=== PATIENT | male | born 1990 ===

== ENCOUNTER 2023-03-24 20:44 | Inpatient (IN) | payer OTHER, SELFPAY ==
--- OUTSIDE RECORDS SUMMARY | 2023-03-24 20:49 | XMS_ITS | Continuity of Care Document ---
Author Name Unknown Organization [facility] Address [address] [place] [address]- Care Team Providers Care Lamp Cleaner Street Light Name Role Phone González Vargas DO Primary Care Physician [place] [facility] [place] 05[place]04/21 [facility] [address] [place] [address]- Encounter Diagnosis Scalp laceration(Final) - 05/04/21 Discharge Disposition: A-D/C Home Attending Physician: Venkata Bryson MD Admitting Physician: Venkata Bryson MD Referring Physician: Not on Staff, Referring MD Allergies, Adverse Reactions, Alerts Substance Reaction Severity Status NKA Active Immunizations Not Given Vaccine Date Status Refusal Reason pneumococcal 23-valent vaccine 07/25/18 Not Given Parent Or Guardian Refuses pneumococcal 23-valent vaccine 04/09/17 Not Given Patient Refuses influenza virus vaccine, inactivated 07/25/18 Not Given Parent Or Guardian Refuses Medications gabapentin 300 mg oral capsule 600 mg, 2, capsule, By Mouth, 3 times a day, # 90 capsule, Refills 0, Maintenance, 02/27/21 12:45:00 EDT, Partial fill upon patient request if the prescription is for a schedule II opioid drug. Start Date: 02/27/21 Status: Ordered Methadone By Mouth, 0 Refills, Maintenance, 03/20/20 20:29:00 EDT, Partial fill upon patient request Start Date: 03/20/20 Status: Ordered Vital Signs Most recent to oldest [Reference Range]: 1 Height 170 cm (05/04/21 8:43 PM) Weight 79 kg (05/04/21 8:43 PM) Oxygen Saturation [94-100 %] 97 % (05/04/21 8:43 PM) Pulse Rate [55-90 bpm] 84 bpm (05/04/21 8:43 PM) Blood Pressure [90-138/55-84 mm Hg] 128/ 85mm Hg (05/04/21 8:43 PM) Respiratory Rate [16-30 br/min] 16 br/mi n (05/04/21 8:43 PM) Temperature [96.8-100.4 DegF] 99.7 DegF (05/04/21 8:43 PM) Mode of Delivery (Oxygen) Room air (05/04/21 8:43 PM) Temperature Route Oral (05/04/21 8:43 PM) Dry Weight 79 kg (05/04/21 8:43 PM)
--- OUTSIDE RECORDS SUMMARY | 2023-03-24 20:49 | XMS_ITS | Continuity of Care Document ---
Author Name Unknown Organization [facility] Address [address] [place] [address]- Care Team Providers Care Gis Geographer Name Role Phone Lilian CHAMBERS Jr, Maico Benz Primary Care Physician ( [phone] [place] [facility] [place](s[place] 07/26/21 - 08/29/[address] [address]- Attending Physician: Mary White MD Admitting Physician: Mary White MD Referring Physician: Mary White MD Allergies, Adverse Reactions, Alerts Substance Reaction Severity Status NKA Active Immunizations Not Given Vaccine Date Status Refusal Reason pneumococcal 23-valent vaccine 07/25/18 Not Given Parent Or Guardian Refuses pneumococcal 23-valent vaccine 04/09/17 Not Given Patient Refuses influenza virus vaccine, inactivated 07/25/18 Not Given Parent Or Guardian Refuses Medications clonazePAM 0.5 mg oral tablet 1 tablet = 0.5 mg, By Mouth, Daily, PRN Anxiety, 0 Refills, Maintenance, 08/23/21 10:18:00 EST, Tablet, Partial fill upon patient request if the prescription is for a schedule II opioid drug. Start Date: 08/23/21 Status: Ordered gabapentin 300 mg oral capsule 600 mg, 2, capsule, By Mouth, 3 times a day, # 42 capsule, Refills 0, Tot. Refills 0, Maintenance, 08/23/21 10:20:00 EST, Route to Pharmacy Electronically, [facility]/pharmacy #[id number], Partial fill upon patient request if the prescription is for a schedule II... Start Date: 08/23/21 Stop Date: 08/30/21 Status: Ordered Methadone = 195 mg, By Mouth, Daily, 0 Refills, Maintenance, 03/20/20 20:29:00 EDT, Partial fill upon patientrequest Start Date: 03/20/20 Status: Ordered mirtazapine 30 mg oral tablet 1 tablet = 30 mg, By Mouth, Daily at bedtime, # 7 tablet, 0 Refills, Maintenance, 08/23/21 10:22:00EST, Tablet, [facility]/pharmacy #[id number], Partial fill upon patient request if the prescription is for a schedule II opioid drug., 169, cm, 08/23/21 8:37:00 EST... Start Date: 08/23/21 Stop Date: 08/30/21 Status: Ordered QUEtiapine 100 mg oral tablet 100 mg, 1, tablet, By Mouth, 2 times a day, # 14 tablet, Refills 0, Tot. Refills 0, Maintenance, 08/23/21 10:21:00 EST, Route to Pharmacy Electronically, [facility]/pharmacy #[id number], Partial fill upon patientrequest if the prescription is for a schedule II op... Start Date: 08/23/21 Stop Date: 08/30/21 Status: Ordered Vyvanse = 50 mg, By Mouth, Daily in AM, 0 Refills, Maintenance, 08/13/21 13:34:00 EST, Partial fill upon patient request if the prescription is for a schedule II opioid drug. Start Date: 08/13/21 Status: Ordered
--- OUTSIDE RECORDS SUMMARY | 2023-03-24 20:49 | XMS_ITS | Continuity of Care Document ---
Author Name Unknown Organization [facility] Address [address] [place] [address]- Care Team Providers Care Senior Billing Consultant Name Role Phone Maico Quintana MD, Jr Primary Care Physician [place] [facility] [place](s[place] 08/13/21 - 08/23/21 [facility] [address] [place] [address]- Discharge Disposition: A-D/C Home Attending Physician: Reinaldo Hernandez MD Admitting Physician: Reinaldo Hernandez MD Referring Physician: Not on Staff, Referring MD Allergies, Adverse Reactions, Alerts Substance Reaction Severity Status NKA Active Immunizations Not Given Vaccine Date Status Refusal Reason pneumococcal 23-valent vaccine 07/25/18 Not Given Parent Or Guardian Refuses pneumococcal 23-valent vaccine 04/09/17 Not Given Patient Refuses influenza virus vaccine, inactivated 07/25/18 Not Given Parent Or Guardian Refuses Medications clindamycin 150 mg oral capsule 3 capsule = 450 mg, By Mouth, Every 8 hours, for 3 days, # 27 capsule, 0 Refills, Acute 08/26/21 10:21:00 EST, 08/23/21 10:21:00 EST, Capsule, [facility]/pharmacy #[id number], Partial fill upon patient request ifthe prescription is for a schedule II opioid drug.,... Start Date: 08/23/21 Stop Date: 08/26/21 Status: Ordered clonazePAM 0.5 mg oral tablet 1 tablet [...] 08/23/21 10:20:00 EST, Route to Pharmacy Electronically, [facility]/pharmacy #[id number], Partial fill upon patient request if the prescription is for a schedule II... Start Date: 08/23/21 Stop Date: 08/30/21 Status: Ordered gabapentin 300 mg oral capsule 600 mg, Capsule, By Mouth, 08/23/21 9:00:00 EST Start Date: 08/23/21 Stop Date: 08/23/21 Status: Completed gabapentin 300 mg oral capsule 600 mg, Capsule, By Mouth, 08/23/21 15:00:00 EST Start Date: 08/23/21 Stop Date: 08/23/21 Status: Completed Methadone = 195 mg, By Mouth, Daily, 0 Refills, Maintenance, 03/20/20 20:29:00 EDT, Partial fill upon patientrequest Start Date: 03/20/20 Status: Ordered methadone 10 mg oral tablet 195 mg, Tablet, By Mouth, 08/23/21 9:00:00 EST Start Date: 08/23/21 Stop Date: 08/23/21 Status: Completed mirtazapine 30 mg oral tablet 1 tablet = 30 mg, By Mouth, Daily at bedtime, # 7 tablet, 0 Refills, Maintenance, 08/23/21 10:22:00EST, Tablet, [facility]/pharmacy #[id number], Partial fill upon patient request if the prescription is for a schedule II opioid drug., 169, cm, 08/23/21 8:37:00 EST... Start Date: 08/23/21 Stop Date: 08/30/21 Status: Ordered QUEtiapine 100 mg oral tablet 100 mg, 1, tablet, By Mouth, 2 times a day, # 14 tablet, Refills 0, Tot. Refills 0, Maintenance, 08/23/21 10:21:00 EST, Route to Pharmacy Electronically, [facility]/pharmacy #[id number], Partial fill upon patientrequest if the prescription is for a schedule II op... Start Date: 08/23/21 Stop Date: 08/30/21 Status: Ordered Vyvanse = 50 mg, By Mouth, Daily in AM, 0 Refills, Maintenance, 08/13/21 13:34:00 EST, Partial fill upon patient request if the prescription is for a schedule II opioid drug. Start Date: 08/13/21 Status: Ordered Vital Signs Most recent to oldest [Reference Range]: 1 2 3 4 Height 169 cm (08/23/21 8:37 AM) 169 cm (08/22/21 9:50 PM) 169 cm (08/21/21 5:11 PM) Weight 80.6 kg (08/20/21 8:57 AM) 74 kg (08/13/21 11:30 AM) 74 kg (08/13/21 11:11 AM) Oxygen Saturation [94-100 %] 98 % (08/23/21 8:37 AM) 95 % (08/22/21 9:50 PM) 96 % (08/21/21 5:11 PM) Pulse Rate [55-90 bpm] 77 bpm (08/23/21 8:37 AM) 72 bpm (08/22/21 9:50 PM) 74 bpm (08/21/21 5:11 PM) Body Mass Index [18.5-24.99] 25.91 *H* (08/13/21 11:30 AM) Blood Pressure [90-138/55-84 mm Hg] 111/62mm Hg (08/23/21 8:37 AM) 129/90mm Hg (08/22/21 9:50 PM) 119/79mm Hg (08/21/21 5:11 PM) Respiratory Rate [16-30 br/min] 16 br/min (08/23/21 3:48 PM) 16 br/min (08/23/21 2:10 PM) 16 br/min (08/23/21 9:45 AM) 16 br/min (08/23/21 9:45 AM) Temperature [96.8-100.4 DegF] 97.7 DegF (08/23/21 8:37 AM) 97.2 DegF (08/22/21 9:50 PM) 97.3 DegF (08/21/21 5:11 PM) Mode of Delivery (Oxygen) Room air (08/23/21 8:37 AM) Room air (08/20/21 8:33 PM) Room air (08/19/21 4:33 PM) Blood pressure sites Arm, left (08/23/21 8:37 AM) Arm, left (08/21/21 8:45 AM) Arm, left (08/20/21 8:33 PM) Temperature Route Temporal (08/23/21 8:37 AM) Temporal (08/21/21 8:45 AM) Temporal (08/20/21 8:33 PM) Dry Weight 74 kg (08/13/21 11:30 AM) 74 kg (08/13/21 11:11 AM) Weight Obtained Via Standing scale (08/20/21 8:57 AM) Standing scale (08/13/21 11:11 AM)
--- OUTSIDE RECORDS SUMMARY | 2023-03-24 20:49 | XMS_ITS | Continuity of Care Document ---
Author Name Unknown Organization [facility] Address [address] [place] [address]- Care Team Providers Care Sleeping Car Conductor Name Role Phone Maico Quintana MD, Jr Primary Care Physician ( [phone] Encounter [facility] [place] Date(s): 04/13/21 - 04/13/[address] [address]- Encounter Diagnosis Cheek laceration(Final) - 04/13/21 Discharge Disposition: A-D/C Home Attending Physician: Mary Ricci MD Admitting Physician: Mary Ricci MD Referring Physician: Not on Staff, Referring [...] recent to oldest [Reference Range]: 1 2 Height 173 cm (04/13/21 5:58 PM) 173 cm (04/13/21 4:37 PM) Weight 82 kg (04/13/21 5:58 PM) 82 kg (04/13/21 4:37 PM) Oxygen Saturation [94-100 %] 96 % (04/13/21 4:37 PM) Pulse Rate [55-90 bpm] 105 bpm *H* (04/13/21 4:37 PM) Blood Pressure [90-138/55-84 mm Hg] 140/ 84mm Hg *H* (04/13/21 4:37 PM) Respiratory Rate [16-30 br/min] 18 br/mi n (04/13/21 4:37 PM) Temperature [96.8-100.4 DegF] 98.4 DegF (04/13/21 4:37 PM) Mode of Delivery (Oxygen) Room air (04/13/21 4:37 PM) Blood pressure sites Arm, left (04/13/21 4:37 PM) Temperature Route Oral (04/13/21 4:37 PM) Dry Weight 82 kg (04/13/21 5:58 PM) 82 kg (04/13/21 4:37 PM)
--- OUTSIDE RECORDS SUMMARY | 2023-03-24 20:49 | XMS_ITS | Continuity of Care Document ---
Author Name Unknown Organization [facility] Address [address] [place] [address]- Care Team Providers Care Centrifugal Screen Tender Name Role Phone Maico Quintana MD, Jr Primary Care Physician [place] [facility] [place] - 10/24/[address] [address]- [facility] [phone] Encounter Diagnosis Overdose(Final) - 10/23/19 Agitated(Final) - 10/23/19 Violent behavior(Final) - 10/23/19 Alcohol intoxication(Final) - 10/23/19 Discharge Disposition: A-D/C Home Attending Physician: Donaldo Awad MD Admitting Physician: Donaldo Awad MD Referring Physician: Not on Staff, Referring MD Allergies, Adverse Reactions, Alerts Substance Reaction Severity Status NKA Active Immunizations Not Given Vaccine Date Status Refusal Reason influenza virus vaccine, inactivated 07/25/18 Not Given Parent Or Guardian Refuses pneumococcal 23-valent vaccine 07/25/18 Not Given Parent Or Guardian Refuses pneumococcal 23-valent vaccine 04/09/17 Not Given Patient Refuses Medications buprenorphine-naloxone 4 mg-1 mg sublingual film See Instructions, 1 film Sublingual Daily for 8 days, # 8 film, 0 Refills, Maintenance, 08/02/18 10:22:40 EST, Film Start Date: 08/02/18 Status: Ordered buprenorphine-naloxone 8 mg-2 mg sublingual film See Instructions, 1 film Sublingual Daily for 8 days, # 8 film, 0 Refills, Maintenance, 08/02/18 10:22:45 EST, Film Start Date: 08/02/18 Status: Ordered clonazePAM 1 mg oral tablet 1 tablet = 1 mg, By Mouth, Daily, PRN Anxiety, for 8 days, # 8 tablet, 0 Refills, Maintenance, 08/02/18 10:22:56 EST, Tablet Start Date: 08/02/18 Status: Ordered clonazePAM 1 mg oral tablet 1 tablet = 1 mg, By Mouth, Daily at bedtime, for 8 days, # 8 tablet, 0 Refills, Maintenance, 08/02/18 10:24:16 EST, Tablet Start Date: 08/02/18 Status: Ordered cloNIDine 0.2 mg oral tablet 0.2 mg, 1, tablet, By Mouth, 2 times a day, # 60 tablet, Refills 0, Tot. Refills 0, Maintenance, 08/02/18 10:24:44 EST, Print Requisition Start Date: 08/02/18 Status: Ordered FLUoxetine 20 mg oral capsule 20 mg, 1, capsule, By Mouth, Daily, # 30 capsule, Refills 0, Tot. Refills 0, Maintenance, 08/02/18 10:26:25 EST, Print Requisition Start Date: 08/02/18 Status: Ordered gabapentin 600 mg oral tablet 1 tablet = 600 mg, By Mouth, 3 times a day, for 8 days, # 24 tablet, 0 Refills, Maintenance, 08/02/18 10:25:02 EST, Tablet Start Date: 08/02/18 Status: Ordered Narcan 4 mg/0.1 mL nasal spray See Instructions, give 4 mg intranasally once as needed for opiate overdose, may repeat every 2 to 3 minutes until patient responds, # 2 each, 0 Refills, Soft Stop, 10/24/19 3:29:00 EST Start Date: 10/24/19 Status: Ordered Remeron 45 mg oral tablet 1 tablet = 45 mg, By Mouth, Daily at bedtime, # 30 tablet, 0 Refills, Maintenance, 08/02/18 10:25:39 EST, Tablet Start Date: 08/02/18 Status: Ordered SEROquel 100 mg oral tablet 100 mg, 1, tablet, By Mouth, 2 times a day, PRN, # 60 tablet, Refills 0, Tot. Refills 0, Maintenance, Anxiety, 08/02/18 10:25:54 EST, Print Requisition Start Date: 08/02/18 Status: Ordered SEROquel 300 mg oral tablet 1 tablet = 300 mg, By Mouth, 2 times a day, # 60 tablet, 0 Refills, Maintenance, 08/02/18 12:33:15 EST, Tablet Start Date: 08/02/18 Status: Ordered Results Radiology Reports * Exam Date Time Procedure Performing Provider Status 10/23/19 6:20 PM Chest Portable Choco , Tatiana; Juana (Zeb ified) Notes: (Chest Portable) Reason For Exam: Hypoxia post overdose w/ likely bloody aspiration;Other: RESULT: Chest Portable Chest Portable AP sitting 0821 hours Reason: Other:; Hypoxia post overdose w likely bloody aspiration; Clinical Question(s): Pneumonia; Hx of Present Illness: overdose, agonal respirations by EMS, 2 rounds nasal narcan, bagged for 5-7 minutes, eventually awoke and arrived alert to self. with sudden onset vomiting up blood COMPARISON: None. FINDINGS: Patient is in left lateral side bending position. LINES AND TUBES: None. LUNGS AND PLEURA: Possible minimal patchy airspace opacity medial right lung base with left retrocardiac patchy airspace opacity. Normal pulmonary vasculature. No pleural effusion. No pneumothorax. HEART, MEDIASTINUM AND DOUGLAS: Heart is normal in size. Normal mediastinal and hilar contour. BONES AND SOFT TISSUES: No acute abnormality. IMPRESSION: Mild patchy airspace opacities left retrocardiac space and medial right lung base suggestive of mild aspiration pneumonitis. WSN: [id number] Dictated By: Rio Salas DO Dictated Date/Time: 10/23/19 6:24 pm Reviewed By: Rio Salas DO Signed By: Rio Salas DO Signed Date/Time: 10/23/19 6:24 pm Transcribed By: SHAWANDA Transcribed Date/Time: 10/23/19 6:23 pm Vital Signs Most recent to oldest [Reference Range]: 1 2 3 Height 168 cm (10/23/19 10:00 PM) 168 cm (10/23/19 9:31 PM) 168 cm (10/23/19 8:00 PM) Weight 84 kg (10/23/19 10:00 PM) 84 kg (10/23/19 9:31 PM) 84 kg (10/23/19 8:00 PM) Oxygen Saturation [94-100 %] 98 % (10/24/19 6:22 AM) 96 % (10/24/19 6:20 AM) 94 % (10/24/19 4:41 AM) Pulse Rate [55-90 bpm] 69 bpm (10/24/19 6:20 AM) 70 bpm (10/24/19 4:41 AM) 74 bpm (10/24/19 2:03 AM) Body Mass Index [18.5-24.99] 29.76 *H* (10/23/19 10:00 PM) 29.76 *H* (10/23/19 9:31 PM) 29.76 *H* (10/23/19 8:00 PM) Blood Pressure [90-138/55-84 mm Hg] 128/79mm Hg (10/24/19 6:20 AM) 130/74mm Hg (10/24/19 4:41 AM) 121/62mm Hg (10/24/19 2:03 AM) Respiratory Rate [16-30 br/min] 15 br/min *L* (10/24/19 6:20 AM) 16 br/min (10/24/19 4:41 AM) 15 br/min *L* (10/24/19 2:45 AM) Temperature [96.8-100.4 DegF] 98.0 DegF (10/24/19 4:41 AM) Liters per Minute 2 L/min (10/24/19 6:20 AM) 2 L/min (10/24/19 4:41 AM) 2 L/min (10/24/19 2:03 AM) Mode of Delivery (Oxygen) Room air (10/24/19 6:22 AM) Nasal cannula (10/24/19 6:20 AM) Nasal cannula (10/24/19 4:41 AM) Blood pressure sites Arm, left (10/24/19 6:20 AM) Arm, left (10/24/19 4:41 AM) Arm, left (10/24/19 2:03 AM) Temperature Route Oral (10/24/19 4:41 AM) Dry Weight 84 kg (10/23/19 10:00 PM) 84 kg (10/23/19 9:31 PM) 84 kg (10/23/19 8:00 PM)
--- OUTSIDE RECORDS SUMMARY | 2023-03-24 20:49 | XMS_ITS | Continuity of Care Document ---
Author Name Unknown Organization [facility] Address [address] [place] [address]- Care Team Providers Care Christmas Tree Farm Worker Name Role Phone González Vargas DO Primary Care Physician Encounter [facility] [place] Date(s): 04/18/21 - 04/18/21 [facility] [address] [place] [address]- Encounter Diagnosis Cellulitis of hand(Final) - 04/18/21 Callus(Final) - 04/18/21 IVDU (intravenous drug user)(Final) - 04/18/21 Discharge Disposition: A-D/C Home Attending Physician: Garrett Mackey MD Admitting Physician: Garrett Mackey MD Referring Physician: Not on Staff, Referring MD Allergies, Adverse Reactions, Alerts Substance Reaction Severity Status NKA Active Immunizations Not Given Vaccine Date Status Refusal Reason pneumococcal 23-valent vaccine 07/25/18 Not Given Parent Or Guardian Refuses pneumococcal 23-valent vaccine 04/09/17 Not Given Patient Refuses influenza virus vaccine, inactivated 07/25/18 Not Given Parent Or Guardian Refuses Medications Bactrim DS 800 mg-160 mg oral tablet 1 tablet, By Mouth, 2 times a day, for 10 days, # 20 tablet, 0 Refills, Acute 04/28/21 19:11:00 EDT, 04/18/21 19:11:00 EDT, Tablet, [id number], Partial fill upon patient request if the prescription is for a schedule II opioid drug., 1 tablet B... Start Date: 04/18/21 Stop Date: 04/28/21 Status: Ordered gabapentin 300 mg oral capsule 600 mg, 2, capsule, By Mouth, 3 times a day, # 90 capsule, Refills 0, Maintenance, 02/27/21 12:45:00 EDT, Partial fill upon patient request if the prescription is for a schedule II opioid drug. Start Date: 02/27/21 Status: Ordered Keflex monohydrate 500 mg oral capsule 1 capsule = 500 mg, By Mouth, 4 times a day, for 10 days, # 40 capsule, 0 Refills, Acute 04/28/21 19:11:00 EDT, 04/18/21 19:11:00 EDT, Capsule, [id number], Partial fill upon patient request if the prescription is for a schedule II opioid drug.... Start Date: 04/18/21 Stop Date: 04/28/21 Status: Ordered Methadone By Mouth, 0 Refills, Maintenance, 03/20/20 20:29:00 EDT, Partial fill upon patient request Start Date: 03/20/20 Status: Ordered Results Radiology Reports * Exam Date Time Procedure Performing Provider Status 04/18/21 6:02 PM Hand Min 3 Views Right Jose Coon (Verified) Notes: (Hand Min 3 Views Right) Reason For Exam: Infection RESULT: Hand Min 3 Views Right Examination: Right hand performed on 04/18/2021. History: Hx of Present Illness: ? infection to bilat. hands w redness, atraumatic right hand swelling, tenderness w sm. punctures to bilat. palms, w drainage present. Endorsing subjective fever, chills, however no documented temp.; Reason: Infection; Clinical Question(s): Osteomyelitis; Fracture? Findings: Frontal, oblique, and lateral views of the right hand are submitted. No fractures, dislocations, or erosions are seen. Soft tissue prominence overlies the lateral aspect of the hand. No soft tissue air is present. There are no radiopaque foreign bodies. IMPRESSION: Minimal soft tissue swelling. There is no acute osseous abnormality. WSN: [id number] Ordering Physician: Dc Brown Dictated By: Paula Sotelo MD Dictated Date/Time: 04/18/21 6:12 pm Reviewed By: Paula Sotelo MD Signed By: Paula Sotelo MD Signed Date/Time: 04/18/21 6:12 pm Transcribed By: SHAWANDA Transcribed Date/Time: 04/18/21 6:11 pm * Exam Date Time Procedure Performing Provider Status 04/18/21 6:02 PM Chest 2 Views Frontal and Lat Neha Coon; Auth (Verified) Notes: (Chest 2 Views Frontal and Lat) Reason For Exam: Cough RESULT: Chest 2 Views Frontal and Lat Examination: Chest performed on 04/18/2021. History: Bilateral hand infection. Fever. Findings: Frontal and lateral views of the chest are compared to a prior study dated 11/21/2020. The cardiac and mediastinal silhouettes are within normal limits. The lungs are clear. The osseous and soft tissue structures are unremarkable. Impression: There is no acute cardiopulmonary disease. WSN: [id number] Ordering Physician: Dc Brown Dictated By: Paula Sotelo MD Dictated Date/Time: 04/18/21 6:03 pm Reviewed By: Paula Sotelo MD Signed By: Paula Sotelo MD Signed Date/Time: 04/18/21 6:03 pm Transcribed By: SHAWANDA Transcribed Date/Time: 04/18/21 6:02 pm Vital Signs Most recent to oldest [Reference Range]: 1 2 3 Height 172 cm (04/18/21:44 PM) 172 cm (04/18/21 3:12 PM) Weight 80 kg (04/18/21:44 PM) 80 kg (04/18/21 3:12 PM) Oxygen Saturation [94-100 %] 97 % (04/18/21:44 PM) 98 % (04/18/21 5:30 PM) 99 % (04/18/21 3:12 PM) Pulse Rate [55-90 bpm] 83 bpm (04/18/21:44 PM) 87 bpm (04/18/21 5:30 PM) 90 bpm (04/18/21 3:12 PM) Body Mass Index [18.5-24.99] 27.04 *H* (04/18/21:44 PM) Blood Pressure [90-138/55-84 mm Hg] 137/88mm Hg (04/18/21 5:44 PM) 134/88mm Hg (04/18/21 5:30 PM) 132/81mm Hg (04/18/21 3:12 PM) Respiratory Rate [16-30 br/min] 18 br/min (04/18/21:44 PM) 18 br/min (04/18/21 5:30 PM) 18 br/min (04/18/21 3:12 PM) Temperature [96.8-100.4 DegF] 98.0 DegF (04/18/21 5:44 PM) 97.6 DegF (04/18/21 5:30 PM) 97.6 DegF (04/18/21 3:12 PM) Mode of Delivery (Oxygen) Room air (04/18/21 5:44 PM) Room air (04/18/21 5:30 PM) Room air (04/18/21 3:12 PM) Blood pressure sites Arm, left (04/18/21 5:44 PM) Arm, right (04/18/21 3:12 PM) Temperature Route Oral (04/18/21 5:44 PM) Oral (04/18/21 3:12 PM) Dry Weight 80 kg (04/18/21 5:44 PM) 80 kg (04/18/21 3:12 PM)
--- OUTSIDE RECORDS SUMMARY | 2023-03-24 20:49 | XMS_ITS | Continuity of Care Document ---
Author Name Unknown Organization [facility] Address [address] [place] [address]- Care Team Providers Care Professional Application Designer Name Role Phone Maico Quintana MD, Jr Primary Care Physician [place] [facility] [place] - 03/20/[address] [address] [phone] Encounter Diagnosis Dentalgia(Final) - 03/20/20 Gingivitis(Final) - 03/20/20 Discharge Disposition: A-D/C Home Attending Physician: Rhys Casillas DO Admitting Physician: Rhys Casillas DO Referring Physician: Not on Staff, Referring MD Allergies, Adverse Reactions, Alerts Substance Reaction Severity Status NKA Active Immunizations Not Given Vaccine Date Status Refusal Reason influenza virus vaccine, inactivated 07/25/18 Not Given Parent Or Guardian Refuses pneumococcal 23-valent vaccine 07/25/18 Not Given Parent Or Guardian Refuses pneumococcal 23-valent vaccine 04/09/17 Not Given Patient Refuses Medications clindamycin 300 mg oral capsule 1 capsule = 300 mg, By Mouth, Every 8 hours, for 5 days, # 15 capsule, 0 Refills, Acute 03/25/20 20:54:00 EDT, 03/20/20 20:54:00 EDT, Capsule, [id number], 173, cm, 03/20/20 20:23:00 EDT, Height, 71.6, kg, 03/20/20 20:23:00 EDT, Dry Weight Start Date: 03/20/20 Stop Date: 03/25/20 Status: Ordered Methadone By Mouth, 0 Refills, Maintenance, 03/20/20 20:29:00 EDT, Partial fill upon patient request Start Date: 03/20/20 Status: Ordered Vital Signs Most recent to oldest [Reference Range]: 1 Height 173 cm (03/20/20 8:23 PM) Weight 71.6 kg (03/20/20 8:23 PM) Oxygen Saturation [94-100 %] 98 % (03/20/20 8:23 PM) Pulse Rate [55-90 bpm] 82 bpm (03/20/20 8:23 PM) Blood Pressure [90-138/55-84 mm Hg] 134/ 83mm Hg (03/20/20 8:23 PM) Respiratory Rate [16-30 br/min] 18 br/mi n (03/20/20 8:23 PM) Temperature [96.8-100.4 DegF] 98.6 DegF (03/20/20 8:23 PM) Mode of Delivery (Oxygen) Room air (03/20/20 8:23 PM) Blood pressure sites Arm, right (03/20/20 8:23 PM) Temperature Route Oral (03/20/20 8:23 PM) Dry Weight 71.6 kg (03/20/20 8:23 PM) Weight Obtained Via Standing scale (03/20/20 8:23 PM)
--- OUTSIDE RECORDS SUMMARY | 2023-03-24 20:49 | XMS_ITS | Continuity of Care Document ---
Author Name Unknown Organization [facility] Address [address] [place] [address]- Care Team Providers Care Senior Research Engineer Name Role Phone Not on Staff, PCP Primary Care Physician Unavail able [place] [facility] [place] - 12/08/[address] [address]- Encounter Diagnosis Methadone use(Final) - 12/08/22 Discharge Disposition: A-D/C Home Attending Physician: Kirk Roberts MD Admitting Physician: Kirk Roberts MD Referring Physician: Not on Staff, Referring MD Allergies, Adverse Reactions, Alerts No Known Allergies Immunizations Not Given Vaccine Date Status Refusal [...] 08/23/21 10:20:00 EST, Route to Pharmacy Electronically, [facility]/pharmacy #[id number], Partial fill upon patient request if the prescription is for a schedule II... Start Date: 08/23/21 Stop Date: 08/30/21 Status: Ordered Methadone = 195 mg, By Mouth, Daily, 0 Refills, Maintenance, 03/20/20 20:29:00 EDT, Partial fill upon patientrequest Start Date: 03/20/20 Status: Ordered Methadone Liquid 210 mg, Solution, By Mouth, Once, STAT, 12/08/22 9:46:00 EDT, Stop date 12/08/22 9:46:00 EDT Start Date: 12/08/22 Stop Date: 12/08/22 Status: Completed mirtazapine 30 mg oral tablet 1 tablet = 30 mg, By Mouth, Daily at bedtime, # 7 tablet, 0 Refills, Maintenance, 08/23/21 10:22:00EST, Tablet, [facility]/pharmacy #[id number], Partial fill upon patient request if the prescription is for a schedule II opioid drug., 169, cm, 08/23/21 8:37:00 EST... Start Date: 08/23/21 Stop Date: 08/30/21 Status: Ordered QUEtiapine 100 mg oral tablet 100 mg, 1, tablet, By Mouth, 2 times a day, # 14 tablet, Refills 0, Tot. Refills 0, Maintenance, 08/23/21 10:21:00 EST, Route to Pharmacy Electronically, [facility]/pharmacy #[id number], Partial fill upon patientrequest if the [...] to oldest [Reference Range]: 1 2 Height 168 cm (12/08/22 9:39 AM) Weight 91 kg (12/08/22 9:39 AM) Oxygen Saturation [94-100 %] 98 % (12/08/22 9:39 AM) Pulse Rate [55-90 bpm] 85 bpm (12/08/22 9:39 AM) Blood Pressure [90-138/55-84 mm Hg] 133/ 99mm Hg (12/08/22 9:39 AM) Respiratory Rate [16-30 br/min] 16 br/mi n (12/08/22 10:00 AM) 18 br/min (12/08/22 9:39 AM) Temperature [96.8-100.4 DegF] 97.5 DegF (12/08/22 9:39 AM) Mode of Delivery (Oxygen) Room air (12/08/22 9:39 AM) Blood pressure sites Arm, right (12/08/22 9:39 AM) Temperature Route Temporal (12/08/22 9:39 AM) Dry Weight 91 kg (12/08/22 9:39 AM) Patient Care team information Care Team Personnel Name: Not on Staff, PCP Position: [facility] Physician (General Medicine) Member Role: PCP Name: Mat PALENCIA, Lea Head Position: [facility] Associate Professional Member Role: ED Physician Promotions Assistant Sales Marketing Address: Address: [address] [place] [address]- Name: Chata Noel RN Position: [facility] ED RN W/OE and Tasks Member Role: Patient Care Provider Name: Kirk Roberts MD Position: [facility] ED Medicine MD Member Role: Admitting Physician Address: Address: [address] [place] [address]- Care Team Related Persons Name: CHATA SOLIS Address: home [address] [place] [address] Name: ELOISA AGUILAR Address: home [address] [place] [address]
--- OUTSIDE RECORDS SUMMARY | 2023-03-24 20:49 | XMS_ITS | Continuity of Care Document ---
Author Name Unknown Organization [facility] Address [address] [place] [address]- Care Team Providers Care Machine Cementer And Folder Name Role Phone Maico Quintana MD, Jr Primary Care Physician [place] [facility] [place] - 11/21/[address] [address]- Encounter Diagnosis Overdose(Final) - 11/21/20 Opiate overdose(Final) - 11/21/20 Discharge Disposition: A-D/C AMA Attending Physician: Charlie Canas MD Admitting Physician: Charlie Canas MD Referring Physician: Not on Staff, Referring MD Allergies, Adverse Reactions, Alerts Substance Reaction Severity Status NKA Active Immunizations Not Given Vaccine Date Status Refusal Reason pneumococcal 23-valent vaccine 07/25/18 Not Given Parent Or Guardian Refuses pneumococcal 23-valent vaccine 04/09/17 Not Given Patient Refuses influenza virus vaccine, inactivated 07/25/18 Not Given Parent Or Guardian Refuses Medications Methadone By Mouth, 0 Refills, Maintenance, 03/20/20 20:29:00 EDT, Partial fill upon patient request Start Date: 03/20/20 Status: Ordered Results Radiology Reports * Exam Date Time Procedure Performing Provider Status 11/21/20 3:02 PM Chest Portable Michael , Jimi; Auth ( Verified) Notes: (Chest Portable) Reason For Exam: Shortness of Breath RESULT: Chest Portable Chest Portable Reason: Drug overdose, Shortness of Breath; Clinical Question(s): CHF COMPARISON: 10/23/2019 FINDINGS: LINES AND TUBES: None. LUNGS AND PLEURA: Lung volumes are low on the initial view with some atelectatic changes in the perihilar right upperlobe which clear on the second view with the patient has taken a deeper breath. No pleural effusion. No pneumothorax. HEART, MEDIASTINUM AND DOUGLAS: Heart is normal in size. Normal upper mediastinal and hilar contour. BONES AND SOFT TISSUES: No acute abnormality. IMPRESSION: Low lung volumes and patchy perihilar atelectasis. Difficult to exclude minimal pneumonia in right upper lobe. I have personally reviewed the images and I agree with this report. WSN: [id number] Ordering Physician: Garrett Mackey Dictated By: Marin Aleman DO Dictated Date/Time: 11/21/20 3:12 pm Reviewed By: Oliverio Garcia MD Signed By: Oliverio Garcia MD Signed Date/Time: 11/21/20 3:17 pm Transcribed By: SHAWANDA Transcribed Date/Time: 11/21/20 3:08 pm Vital Signs Most recent to oldest [Reference Range]: 1 2 3 Height 170 cm (11/21/20 6:41 PM) 170 cm (11/21/20 2:48 PM) 170 cm (11/21/20 1:32 PM) Weight 71 kg (11/21/20 6:41 PM) 71 kg (11/21/20 2:48 PM) 71 kg (11/21/20 1:32 PM) Oxygen Saturation [94-100 %] 94 % (11/21/20 4:23 PM) 98 % (11/21/20 2:48 PM) 95 % (11/21/20 1:31 PM) Pulse Rate [55-90 bpm] 77 bpm (11/21/20 4:23 PM) 68 bpm (11/21/20 2:48 PM) 88 bpm (11/21/20 1:31 PM) Body Mass Index [18.5-24.99] 24.57 (11/21/20 2:48 PM) Blood Pressure [90-138/55-84 mm Hg] 129/85mm Hg (11/21/20 4:23 PM) 118/83mm Hg (11/21/20 2:48 PM) 124/74mm Hg (11/21/20 1:31 PM) Respiratory Rate [16-30 br/min] 10 br/min *L* (11/21/20 4:23 PM) 9 br/min *L* (11/21/20 2:48 PM) 7 br/min *L* (11/21/20 1:31 PM) Liters per Minute 1 L/min (11/21/20 1:31 PM) Mode of Delivery (Oxygen) Room air (11/21/20 2:48 PM) Nasal cannula (11/21/20 1:31 PM) Blood pressure sites Arm, left (11/21/20 4:23 PM) Arm, left (11/21/20 2:48 PM) Arm, left (11/21/20 1:31 PM) Dry Weight 71 kg (11/21/20 6:41 PM) 71 kg (11/21/20 2:48 PM) 71 kg (11/21/20 1:32 PM)
--- OUTSIDE RECORDS SUMMARY | 2023-03-24 20:49 | XMS_ITS | Continuity of Care Document ---
Author Name Unknown Organization [facility] Address [address] [place] [address]- Care Team Providers Care Drapery Cutter Name Role Phone Maico Quintana MD, Jr Primary Care Physician ( [phone] [place] [facility] [place]18[place] - 01/18/[address] [address] [phone] Discharge Disposition: A-D/C Home Attending Physician: Donaldo [...] EST, Tablet Start Date: 08/02/18 Status: Ordered Vital Signs Most recent to oldest [Reference Range]: 1 Height 173 cm (01/18/20 3:21 AM) Weight 79.5 kg (01/18/20 3:21 AM) Oxygen Saturation [94-100 %] 98 % (01/18/20 3:21 AM) Pulse Rate [55-90 bpm] 72 bpm (01/18/20 3:21 AM) Blood Pressure [90-138/55-84 mm Hg] 139/ 97mm Hg *H* (01/18/20 3:21 AM) Respiratory Rate [16-30 br/min] 18 br/mi n (01/18/20 3:21 AM) Temperature [96.8-100.4 DegF] 96.6 DegF *L* (01/18/20 3:21 AM) Mode of Delivery (Oxygen) Room air (01/18/20 3:21 AM) Blood pressure sites Arm, left (01/18/20 3:21 AM) Temperature Route Oral (01/18/20 3:21 AM) Dry Weight 79.5 kg (01/18/20 3:21 AM)
[2023-03-24 22:00] VITALS: BP 132/82; PULSE 98; TEMP 36.7; O2SAT 96
--- NOTE | 2023-03-25 01:20 | PC.ADMIT ---
pt is a 32 year old male who presented to [facility] ED with SI and increased depression. pt tox screen is positive for cocaine and alcohol. pt has a PMH of alcohol use disorder, cocaine use disorder, opioid use disorder, and PTSD. pt currently has an abcess on his left arm and rash on his abdomen. MD notified. during admission, pt signed all legals, but wanted to head to bed. pt has methadone from [facility]. pt signed a CV. start treatment plan and promote safety.
--- NOTE | 2023-03-25 06:46 | HE.PHANOTE ---
RE: methadone Received methadone verification form from [facility]; last dose 210mg 03/23/23 @8225
[2023-03-25 08:18] LABS: Cholesterol 152 mg/dL; HDL Cholesterol 36 mg/dL; LDL Cholesterol Calculated 57 mg/dl; Triglycerides 299 mg/dL
[2023-03-25 08:30] VITALS: BP 106/63; PULSE 58; RESP 18; TEMP 36.2; O2SAT 99
[2023-03-25 08:33] LABS: Estimated Average Glucose 100 mg/dL; Estimated Average Glucose 103 mg/dL; Hemoglobin A1c % 5.1 %; Hemoglobin A1c % 5.2 %
[2023-03-25] MEDS: cephALEXin 500 MG CAPSULE PO ×4 (08:51→20:43)
[2023-03-25] MEDS: methADONE HCl 20 MG/2 ML ORAL.CONC 210 MG PO (08:51)
[2023-03-25] MEDS: Gabapentin 600 MG TABLET PO (08:51)
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
[2023-03-25] MEDS: Nicotine 21 MG PATCH.TD24 TRANSDERMA (12:42)
[2023-03-25] MEDS: clonazePAM 0.5 MG TABLET PO ×2 (12:42→18:49)
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
[2023-03-25] MEDS: Gabapentin 400 MG CAPSULE 800 MG PO ×2 (15:02→20:43)
[2023-03-25 18:46] VITALS: BP 115/66; PULSE 77; TEMP 36.3
[2023-03-25] MEDS: hydrOXYzine HCL 25 MG TABLET PO (18:49)
[2023-03-25] MEDS: Betamethasone Dip Aug 0.05% Cr 15 GM TUBE 1 APPL TOPICAL (20:42)
[2023-03-25] MEDS: OLANZapine 5 MG TABLET PO (20:43)
[2023-03-25] MEDS: Mirtazapine 30 MG TABLET PO (20:43)
[2023-03-26 08:50] VITALS: BP 118/63; PULSE 66; RESP 18; TEMP 37; O2SAT 98
[2023-03-26] MEDS: cephALEXin 500 MG CAPSULE PO ×4 (08:59→20:08)
[2023-03-26] MEDS: Gabapentin 400 MG CAPSULE 800 MG PO ×3 (08:59→20:08)
[2023-03-26] MEDS: Nicotine 21 MG PATCH.TD24 TRANSDERMA (08:59)
[2023-03-26] MEDS: OLANZapine 5 MG TABLET PO ×2 (08:59→20:08)
[2023-03-26] MEDS: methADONE HCl 20 MG/2 ML ORAL.CONC 210 MG PO (09:01)
--- NOTE | 2023-03-26 11:00 | P.PNPSI_ITS ---
Subjective Subjective Date of Service: 03/26/23 Reason For Visit: Unspecified trauma and stress disorder Subjective Notes: Conditional Voluntary Healthcare Proxy: No Guardianship: No Medical Problems Affecting Mental Status: No Interim History: Reports symptoms of depression persist. Getting more sleep after reportedly not sleeping for 6 days. 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 Reviewed rash on torso-currently on an antibiotic-will continue to monitor Medication Compliance: Yes Side effects from medications: No Attending Groups: No Review of Systems Acute medical concerns: No Medical Review of Systems: unchanged Mental Status Exam Mental Status Exam Patient Appearance: Fatigued Patient Orientation: Person, Place, Time and Situation Level of Consciousness: Alert Patient Behavior: Appropriate, Talkative, Cooperative and Good Eye Contact Mood Description: Depressed Affect Description: Flat Patient Cognition Impaired: No Ability to Follow Directions: Fair Speech Pattern: Spontaneous Speech Memory Description: Episodic Impaired Hallucinations: None Delusions: Paranoid Ideation Perceptual Disturbances: Depersonalization and Derealization Thought Process: Distracted and Rumination Thought Content: positive for Circumstantial and positive for Suicidal Ideation Depressive Symptoms: Increased Anxiety, Difficulty Sleeping, Feelings of Worthlessness, Hopelessness, Feelings of Guilt, Unhappiness, Increased Fatigue, Thoughts of /Suicide, Low Self Esteem, Loss of Energy and Difficulty Concentrating Judgement: Good Diagnostics Vital Signs (24Hr): Vital Signs - 24 hr 03/25/23 18:46 03/26/23 08:50 Temperature 97.3 F 98.6 F Pulse Rate 77 66 Respiratory Rate 18 Blood Pressure 115/66 118/63 Pulse Oximetry 98 Labs Labs: Laboratory Results - last 48 hr 03/25/23 03/25/23 03/25/23 07:44 07:44 07:44 Estimat Average Glucose 100 103 Hemoglobin A1c % 5.1 5.2 Triglycerides 299 Cholesterol 152 LDL Cholesterol, Calc 57 HDL Cholesterol 36 Medications Medications Current Medications Acetaminophen (Acetaminophen 325 Mg Tablet) 650 mg PO Q6H PRN PRN Reason: Headache/Pain Mild Scale (1-3) Al Hydroxide/Mg Hydroxide (Magnesium Hydrox/Alum Hydrox 30 Ml Oral.Susp) 30 ml PO Q6H PRN PRN Reason: Heartburn/Nausea Betamethasone Dipropion Augmented (Betamethasone Dip Aug 0.05% Cr 15 Gm Tube) 1 appl TOPICAL BID [facility]; Protocol Last Admin: 03/26/23 09:18 Dose: Not Given Cephalexin HCl (Cephalexin 500 Mg Capsule) 500 mg PO QID [facility] Last Admin: 03/26/23 08:59 Dose: 500 mg Clonazepam (Clonazepam 0.5 Mg Tablet) 0.5 mg PO BID PRN PRN Reason: Anxiety Last Admin: 03/25/23 18:49 Dose: 0.5 mg Gabapentin (Gabapentin 400 Mg Capsule) 800 mg PO TID [facility] Last Admin: 03/26/23 08:59 Dose: 800 mg Hydroxyzine HCl (Hydroxyzine Hcl 25 Mg Tablet) 25 mg PO Q6H PRN PRN Reason: Anxiety Last Admin: 03/25/23 18:49 Dose: 25 mg Magnesium Hydroxide (Milk Of Magnesia 30 Ml Oral.Susp) 30 ml PO DAILY PRN PRN Reason: Constipation Methadone HCl (Methadone Hcl 20 Mg/2 Ml Oral.Conc) 210 mg PO DAILY [facility] Last Admin: 03/26/23 09:01 Dose: 210 mg Mirtazapine (Mirtazapine 30 Mg Tablet) 30 mg PO BEDTIME [facility] Last Admin: 03/25/23 20:43 Dose: 30 mg Nicotine (Nicotine 21 Mg Patch.Td24) 21 mg TRANSDERMA DAILY [facility] Last Admin: 03/26/23 08:59 Dose: 21 mg Nicotine Polacrilex (Nicotine Polacrilex 2 Mg Gum) 4 mg BUCCAL Q2H PRN PRN Reason: Nicotine Cravings Olanzapine (Olanzapine 5 Mg Tablet) 5 mg PO TID PRN PRN Reason: agitation Olanzapine (Olanzapine 5 Mg Tablet) 5 mg PO BID [facility] Last Admin: 03/26/23 08:59 Dose: 5 mg Trazodone HCl (Trazodone Hcl 50 Mg Tablet) 50 mg PO BEDTIME MRX1 PRN PRN Reason: Insomnia Allergies Allergies Allergy/AdvReac Type Severity Reaction Status Date / Time No Known Allergies Allergy Verified 03/24/23 21:51 Assessment & Plan Assessment & Plan (1) Acute stress reaction: Status: Acute Code(s): F43.0 - Acute stress reaction (2) PTSD (post-traumatic stress disorder): Status: Acute Code(s): F43.10 - Post-traumatic stress disorder, unspecified (3) Opioid use disorder, severe, on maintenance therapy: Status: Acute Code(s): F11.20 - Opioid dependence, uncomplicated (4) Polysubstance use disorder: Status: Acute Code(s): F19.90 - Other psychoactive substance use, unspecified, uncomplicated (5) Depression: Status: Acute Code(s): F32.A - Depression, unspecified Plan 03/26/23- Continue current regime Requests HIV, Hepatitis testing Encourge ongoing treatment Informed Consent: understands Reason for continued inpatient stay Substantial Risk for: rapid decompensation Time Spent With Patient Time: Total time managing care of this patient today ____ minutes.
[2023-03-26] MEDS: clonazePAM 0.5 MG TABLET PO ×2 (12:11→18:35)
[2023-03-26 18:34] VITALS: BP 138/86; PULSE 91; TEMP 36.6
[2023-03-26] MEDS: Mirtazapine 30 MG TABLET PO (20:09)
[2023-03-27] MEDS: methADONE HCl 20 MG/2 ML ORAL.CONC 210 MG PO (08:36)
[2023-03-27] MEDS: OLANZapine 5 MG TABLET PO ×2 (08:37→20:21)
[2023-03-27] MEDS: cephALEXin 500 MG CAPSULE PO ×4 (08:37→20:20)
[2023-03-27] MEDS: Nicotine 21 MG PATCH.TD24 TRANSDERMA (08:37)
[2023-03-27] MEDS: Gabapentin 400 MG CAPSULE 800 MG PO ×3 (08:37→20:20)
[2023-03-27 08:40] VITALS: BP 104/67; PULSE 67; RESP 16; TEMP 36.7; O2SAT 99
--- NOTE | 2023-03-27 10:46 | HO.PSYCHPN ---
Subjective Subjective Date of Service: 03/27/23 Reason For Visit: Unspecified trauma and stress disorder Subjective Notes: Conditional Voluntary Healthcare Proxy: No Guardianship: No Medical Problems Affecting Mental Status: No Interim History: Pt reports onging depressive sx, however feeling safe on the unit. Review of lab results, +hepatitis C labs and potential treatment options via consultation with GI team. Pt discussed his concerns. Active with peers at times, sleeping at times. Medication Compliance: Yes Side effects from medications: No Attending Groups: Intermittent Review of Systems Acute medical concerns: No Medical Review of Systems: unchanged Mental Status Exam Mental Status Exam Patient Appearance: Fatigued Patient Orientation: Person, Place, Time and Situation Level of Consciousness: Alert Patient Behavior: Appropriate, Talkative, Cooperative and Good Eye Contact Mood Description: Depressed Affect Description: Flat Patient Cognition Impaired: No Ability to Follow Directions: Fair Speech Pattern: Spontaneous Speech Memory Description: Episodic Impaired Hallucinations: None Delusions: Paranoid Ideation Perceptual Disturbances: Depersonalization and Derealization Thought Process: Distracted and Rumination Thought Content: positive for Circumstantial and positive for Suicidal Ideation Depressive Symptoms: Increased Anxiety, Difficulty Sleeping, Feelings of Worthlessness, Hopelessness, Feelings of Guilt, Unhappiness, Increased Fatigue, Thoughts of /Suicide, Low Self Esteem, Loss of Energy and Difficulty Concentrating Judgement: Good Diagnostics Vital Signs (24Hr): Vital Signs - 24 hr 03/26/23 18:34 03/27/23 08:40 Temperature 97.9 F 98.0 F Pulse Rate 91 67 Respiratory Rate 16 Blood Pressure 138/86 104/67 Pulse Oximetry 99 Oxygen Delivery Method Room Air Medications Medications Current Medications Acetaminophen (Acetaminophen 325 Mg Tablet) 650 mg PO Q6H PRN PRN Reason: Headache/Pain Mild Scale (1-3) Al Hydroxide/Mg Hydroxide (Magnesium Hydrox/Alum Hydrox 30 Ml Oral.Susp) 30 ml PO Q6H PRN PRN Reason: Heartburn/Nausea Betamethasone Dipropion Augmented (Betamethasone Dip Aug 0.05% Cr 15 Gm Tube) 1 appl TOPICAL BID [facility]; Protocol Last Admin: 03/27/23 08:41 Dose: Not Given Cephalexin HCl (Cephalexin 500 Mg Capsule) 500 mg PO QID [facility] Last Admin: 03/27/23 08:37 Dose: 500 mg Clonazepam (Clonazepam 0.5 Mg Tablet) 0.5 mg PO BID PRN PRN Reason: Anxiety Last Admin: 03/26/23 18:35 Dose: 0.5 mg Gabapentin (Gabapentin 400 Mg Capsule) 800 mg PO TID [facility] Last Admin: 03/27/23 08:37 Dose: 800 mg Hydroxyzine HCl (Hydroxyzine Hcl 25 Mg Tablet) 25 mg PO Q6H PRN PRN Reason: Anxiety Last Admin: 03/25/23 18:49 Dose: 25 mg Magnesium Hydroxide (Milk Of Magnesia 30 Ml Oral.Susp) 30 ml PO DAILY PRN PRN Reason: Constipation Methadone HCl (Methadone Hcl 20 Mg/2 Ml Oral.Conc) 210 mg PO DAILY [facility] Last Admin: 03/27/23 08:36 Dose: 210 mg Mirtazapine (Mirtazapine 30 Mg Tablet) 30 mg PO BEDTIME [facility] Last Admin: 03/26/23 20:09 Dose: 30 mg Nicotine (Nicotine 21 Mg Patch.Td24) 21 mg TRANSDERMA DAILY [facility] Last Admin: 03/27/23 08:37 Dose: 21 mg Nicotine Polacrilex (Nicotine Polacrilex 2 Mg Gum) 4 mg BUCCAL Q2H PRN PRN Reason: Nicotine Cravings Olanzapine (Olanzapine 5 Mg Tablet) 5 mg PO TID PRN PRN Reason: agitation Olanzapine (Olanzapine 5 Mg Tablet) 5 mg PO BID [facility] Last Admin: 03/27/23 08:37 Dose: 5 mg Trazodone HCl (Trazodone Hcl 50 Mg Tablet) 50 mg PO BEDTIME MRX1 PRN PRN Reason: Insomnia Allergies Allergies Allergy/AdvReac Type Severity Reaction Status Date / Time No Known Allergies Allergy Verified 03/24/23 21:51 Assessment & Plan Assessment & Plan (1) PTSD (post-traumatic stress disorder): Status: Acute Code(s): F43.10 - Post-traumatic stress disorder, unspecified (2) Depression: Status: Acute Code(s): F32.A - Depression, unspecified (3) Polysubstance use disorder: Status: Acute Code(s): F19.90 - Other psychoactive substance use, unspecified, uncomplicated (4) Opioid use disorder, severe, on maintenance therapy: Status: Acute Code(s): F11.20 - Opioid dependence, uncomplicated (5) Acute stress reaction: Status: Acute Code(s): F43.0 - Acute stress reaction Plan 32 yo male, history of PTSD, Depression, Anxiety, Opiate Use Disorder, on MAT, Polysubstance Use Disorder with recent sudden of sister on an ATV in [place]. Pt reports this precipiated relapse and SI with plan and intent. Plan: Re-establish regime Medical consult Collateral contacts Scheduled Olanzapine to address paranoia Out patient planning 03/27/23 Continue current regime and plan of care. Patient educated on: medication risk/benefits, therapeutic strategies and medical condition Informed Consent: understands Reason for continued inpatient stay Substantial Risk for: rapid decompensation Time Spent With Patient Time: Total time managing care of this patient today ____ minutes.
[2023-03-27 11:00] LABS: HIV AB/AG Nonreactive (Nonreactive); HIV Num 1 0.67 S/CO (0.00-0.99)
[2023-03-27 11:02] LABS: HBS Num1 > 1000.00 mIU/mL (0-7.99); HBc Num1 0.48 S/CO (0.00-0.79); HBsAGNum1 0.33 S/CO (0.00-0.99); Hepatitis A Antibody IgM 0.32 Index (0-0.79); Hepatitis B Core Antibody Nonreactive (Nonreactive); Hepatitis B Surface Antigen Negative (Negative); ~HepC Num1 14.13 S/CO (0.00-0.79); ~Hepatitis A Antibody IgM Nonreactive (Nonreactive); ~Hepatitis B Surface Antibody REACTIVE (Nonreactive); ~Hepatitis C Antibody Reactive (Nonreactive)
[2023-03-27] MEDS: clonazePAM 0.5 MG TABLET PO ×2 (14:09→20:20)
[2023-03-27 18:32] VITALS: BP 125/73; PULSE 80; TEMP 36.8
[2023-03-27] MEDS: Mirtazapine 30 MG TABLET PO (20:20)
[2023-03-27] MEDS: Betamethasone Dip Aug 0.05% Cr 15 GM TUBE 1 APPL TOPICAL (20:25)
[2023-03-28 08:20] VITALS: BP 126/72; PULSE 79; RESP 18; TEMP 37; O2SAT 97
[2023-03-28] MEDS: Nicotine 21 MG PATCH.TD24 TRANSDERMA (09:24)
[2023-03-28] MEDS: methADONE HCl 20 MG/2 ML ORAL.CONC 210 MG PO (09:25)
[2023-03-28] MEDS: Betamethasone Dip Aug 0.05% Cr 15 GM TUBE 1 APPL TOPICAL ×2 (09:26→21:04)
[2023-03-28] MEDS: OLANZapine 5 MG TABLET PO ×2 (09:26→21:04)
[2023-03-28] MEDS: cephALEXin 500 MG CAPSULE PO ×4 (09:26→21:04)
[2023-03-28] MEDS: Gabapentin 400 MG CAPSULE 800 MG PO ×3 (09:39→21:03)
[2023-03-28] MEDS: clonazePAM 0.5 MG TABLET PO ×2 (09:39→17:43)
--- NOTE | 2023-03-28 11:27 | P.PNPSI_ITS ---
Subjective Subjective Date of Service: 03/28/23 Reason For Visit: Unspecified trauma and stress disorder Interim History: Met with patient; discussed with team Patient reports that he still feeling depressed and emotional however he is pushing himself to not be isolated. In fact he said it was a goal of his today to force himself into the milieu. He still very sad about his sister's and is feeling very guilty that he missed her because he was intoxicated and disheveled, and embarrassed to show up like that. Patient however was able to reframe this experience and take comfort in the fact that he was very present and her life while she was alive which he agreed was most important. Intermittent SI though dissipating. Feels medications are helpful. No delusional thinking expressed Mental Status Exam Mental Status Exam Patient Appearance: Appropriate Patient Orientation: Person, Place, Time and Situation Level of Consciousness: Awake and Alert Patient Behavior: Appropriate, Talkative, Cooperative and Good Eye Contact Mood Description: Depressed Affect Description: Appropriate and Depressed Patient Cognition Impaired: No Ability to Follow Directions: Fair Speech Pattern: Spontaneous Speech Memory Description: Episodic Impaired Hallucinations: None Delusions: Not Present Perceptual Disturbances: Depersonalization and Derealization Thought Process: Rumination and Goal Oriented Thought Content: positive for Goal Oriented (thinking about sisters ; guilty feelings), positive for Suicidal Ideation (but dissipating) and positive for Homicidal Ideation (none) Depressive Symptoms: Increased Anxiety, Difficulty Sleeping, Feelings of Worthlessness, Feelings of Guilt, Unhappiness, Increased Fatigue, Low Self Esteem, Loss of Energy and Difficulty Concentrating Judgement and Insight: impaired but improving Diagnostics Vital Signs (24Hr): Vital Signs - 24 hr 03/27/23 18:32 Temperature 98.2 F Pulse Rate 80 Blood Pressure 125/73 Labs Labs: Laboratory Results - last 48 hr 03/27/23 03/27/23 08:07 08:07 Hepatitis A IgM Ab Nonreactive Hep Bs Antigen Negative Hep Bs Antibody REACTIVE Hep B Core Total Ab Nonreactive Hepatitis C Ab (EIA) Reactive H HIV 1&2 Ab/P24 Ag 4thGn Nonreactive Medications Medications Current Medications Acetaminophen (Acetaminophen 325 Mg Tablet) 650 mg PO Q6H PRN PRN Reason: Headache/Pain Mild Scale (1-3) Al Hydroxide/Mg Hydroxide (Magnesium Hydrox/Alum Hydrox 30 Ml Oral.Susp) 30 ml PO Q6H PRN PRN Reason: Heartburn/Nausea Betamethasone Dipropion Augmented (Betamethasone Dip Aug 0.05% Cr 15 Gm Tube) 1 appl TOPICAL BID [facility]; Protocol Last Admin: 03/28/23 09:26 Dose: 1 appl Cephalexin HCl (Cephalexin 500 Mg Capsule) 500 mg PO QID [facility] Last Admin: 03/28/23 09:26 Dose: 500 mg Clonazepam (Clonazepam 0.5 Mg Tablet) 0.5 mg PO BID PRN PRN Reason: Anxiety Last Admin: 03/28/23 09:39 Dose: 0.5 mg Gabapentin (Gabapentin 400 Mg Capsule) 800 mg PO TID [facility] Last Admin: 03/28/23 09:39 Dose: 800 mg Hydroxyzine HCl (Hydroxyzine Hcl 25 Mg Tablet) 25 mg PO Q6H PRN PRN Reason: Anxiety Last Admin: 03/25/23 18:49 Dose: 25 mg Magnesium Hydroxide (Milk Of Magnesia 30 Ml Oral.Susp) 30 ml PO DAILY PRN PRN Reason: Constipation Methadone HCl (Methadone Hcl 20 Mg/2 Ml Oral.Conc) 210 mg PO DAILY [facility] Last Admin: 03/28/23 09:25 Dose: 210 mg Mirtazapine (Mirtazapine 30 Mg Tablet) 30 mg PO BEDTIME [facility] Last Admin: 03/27/23 20:20 Dose: 30 mg Nicotine (Nicotine 21 Mg Patch.Td24) 21 mg TRANSDERMA DAILY [facility] Last Admin: 03/28/23 09:24 Dose: 21 mg Nicotine Polacrilex (Nicotine Polacrilex 2 Mg Gum) 4 mg BUCCAL Q2H PRN PRN Reason: Nicotine Cravings Olanzapine (Olanzapine 5 Mg Tablet) 5 mg PO TID PRN PRN Reason: agitation Olanzapine (Olanzapine 5 Mg Tablet) 5 mg PO BID [facility] Last Admin: 03/28/23 09:26 Dose: 5 mg Trazodone HCl (Trazodone Hcl 50 Mg Tablet) 50 mg PO BEDTIME MRX1 PRN PRN Reason: Insomnia Allergies Allergies Allergy/AdvReac Type Severity Reaction Status Date / Time No Known Allergies Allergy Verified 03/24/23 21:51 Assessment & Plan Assessment & Plan (1) PTSD (post-traumatic stress disorder): Status: Acute Code(s): F43.10 - Post-traumatic stress disorder, unspecified (2) Depression: Status: Acute Code(s): F32.A - Depression, unspecified (3) Polysubstance use disorder: Status: Acute Code(s): F19.90 - Other psychoactive substance use, unspecified, uncomplicated (4) Opioid use disorder, severe, on maintenance therapy: Status: Acute Code(s): F11.20 - Opioid dependence, uncomplicated (5) Acute stress reaction: Status: Acute Code(s): F43.0 - Acute stress reaction Plan 32 yo male, history of PTSD, Depression, Anxiety, Opiate Use Disorder, on MAT, Polysubstance Use Disorder with recent sudden of sister on an ATV in [place]. Pt reports this precipiated relapse and SI with plan and intent. Plan: Re-establish regime Medical consult Collateral contacts Scheduled Olanzapine to address paranoia Out patient planning 03/27/23 Continue current regime and plan of care. 03/28/23 patient pushing himself to engage with peers and address his depression and guilty feelings; still with intermittent SI but working on processing his feelings; discussed behavioral activation with which he is engaged Continue current regimen for now Patient educated on: diagnosis, medication risk/benefits and therapeutic strategies Informed Consent: understands Reason for continued inpatient stay Substantial Risk for: harm to self and rapid decompensation Time Spent With Patient Time: Total time managing care of this patient today ____ minutes.
[2023-03-28 18:00] VITALS: BP 126/84; PULSE 76; RESP 18; TEMP 37.1
[2023-03-28] MEDS: Mirtazapine 30 MG TABLET PO (21:03)
[2023-03-29 06:00] VITALS: BP 127/62; PULSE 74; RESP 16; TEMP 36.2; O2SAT 96
[2023-03-29] MEDS: Gabapentin 400 MG CAPSULE 800 MG PO ×3 (08:47→21:29)
[2023-03-29] MEDS: cephALEXin 500 MG CAPSULE PO ×4 (08:47→21:29)
[2023-03-29] MEDS: OLANZapine 5 MG TABLET PO ×2 (08:47→21:28)
[2023-03-29] MEDS: methADONE HCl 20 MG/2 ML ORAL.CONC 210 MG PO (08:48)
[2023-03-29] MEDS: Nicotine 21 MG PATCH.TD24 TRANSDERMA (08:49)
[2023-03-29] MEDS: Betamethasone Dip Aug 0.05% Cr 15 GM TUBE 1 APPL TOPICAL (09:59)
--- NOTE | 2023-03-29 10:15 | P.PNPSI_ITS ---
Subjective Subjective Date of Service: 03/29/23 Reason For Visit: Unspecified trauma and stress disorder Interim History: met with patient; discussed with team Medical Technologist Hematology accidentally startled patient while he was resting in bed however patient was for giving. Patient reports that he is still feeling depressed though a little better. He says he struggle with motivation to do things but is still pushing himself. 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 Patient attending groups. Discussed medications and patient does not want changes. Mental Status Exam Mental Status Exam Patient Appearance: Appropriate Patient Orientation: Person, Place, Time and Situation Level of Consciousness: Awake and Alert Patient Behavior: Appropriate, Talkative, Cooperative and Good Eye Contact Mood Description: Depressed Affect Description: Appropriate and Depressed Patient Cognition Impaired: No Ability to Follow Directions: Fair Speech Pattern: Spontaneous Speech Memory Description: Episodic Impaired Hallucinations: None Delusions: Not Present Perceptual Disturbances: Depersonalization and Derealization Thought Process: Rumination and Goal Oriented Thought Content: positive for Goal Oriented (thinking about sisters ; guilty feelings), positive for Suicidal Ideation (but dissipating) and positive for Homicidal Ideation (none) Depressive Symptoms: Increased Anxiety, Difficulty Sleeping, Feelings of Worthlessness, Feelings of Guilt, Unhappiness, Increased Fatigue, Low Self Esteem, Loss of Energy and Difficulty Concentrating Judgement and Insight: impaired but improving Diagnostics Vital Signs (24Hr): Vital Signs - 24 hr 03/28/23 18:00 03/29/23 06:00 Temperature 98.7 F 97.2 F Pulse Rate 76 74 Respiratory Rate 18 16 Blood Pressure 126/84 127/62 Pulse Oximetry 96 Oxygen Delivery Method Room Air Labs Labs: Laboratory Results - last 48 hr 03/27/23 03/27/23 08:07 08:07 Hepatitis A IgM Ab Nonreactive Hep Bs Antigen Negative Hep Bs Antibody REACTIVE Hep B Core Total Ab Nonreactive Hepatitis C Ab (EIA) Reactive H HIV 1&2 Ab/P24 Ag 4thGn Nonreactive Medications Medications Current Medications Acetaminophen (Acetaminophen 325 Mg Tablet) 650 mg PO Q6H PRN PRN Reason: Headache/Pain Mild Scale (1-3) Al Hydroxide/Mg Hydroxide (Magnesium Hydrox/Alum Hydrox 30 Ml Oral.Susp) 30 ml PO Q6H PRN PRN Reason: Heartburn/Nausea Betamethasone Dipropion Augmented (Betamethasone Dip Aug 0.05% Cr 15 Gm Tube) 1 appl TOPICAL BID [facility]; Protocol Last Admin: 03/29/23 09:59 Dose: 1 appl Cephalexin HCl (Cephalexin 500 Mg Capsule) 500 mg PO QID [facility] Last Admin: 03/29/23 08:47 Dose: 500 mg Clonazepam (Clonazepam 0.5 Mg Tablet) 0.5 mg PO BID PRN PRN Reason: Anxiety Last Admin: 03/28/23 17:43 Dose: 0.5 mg Gabapentin (Gabapentin 400 Mg Capsule) 800 mg PO TID [facility] Last Admin: 03/29/23 08:47 Dose: 800 mg Hydroxyzine HCl (Hydroxyzine Hcl 25 Mg Tablet) 25 mg PO Q6H PRN PRN Reason: Anxiety Last Admin: 03/25/23 18:49 Dose: 25 mg Magnesium Hydroxide (Milk Of Magnesia 30 Ml Oral.Susp) 30 ml PO DAILY PRN PRN Reason: Constipation Methadone HCl (Methadone Hcl 20 Mg/2 Ml Oral.Conc) 210 mg PO DAILY [facility] Last Admin: 03/29/23 08:48 Dose: 210 mg Mirtazapine (Mirtazapine 30 Mg Tablet) 30 mg PO BEDTIME [facility] Last Admin: 03/28/23 21:03 Dose: 30 mg Nicotine (Nicotine 21 Mg Patch.Td24) 21 mg TRANSDERMA DAILY [facility] Last Admin: 03/29/23 08:49 Dose: 21 mg Nicotine Polacrilex (Nicotine Polacrilex 2 Mg Gum) 4 mg BUCCAL Q2H PRN PRN Reason: Nicotine Cravings Olanzapine (Olanzapine 5 Mg Tablet) 5 mg PO TID PRN PRN Reason: agitation Olanzapine (Olanzapine 5 Mg Tablet) 5 mg PO BID [facility] Last Admin: 03/29/23 08:47 Dose: 5 mg Trazodone HCl (Trazodone Hcl 50 Mg Tablet) 50 mg PO BEDTIME MRX1 PRN PRN Reason: Insomnia Allergies Allergies Allergy/AdvReac Type Severity Reaction Status Date / Time No Known Allergies Allergy Verified 03/24/23 21:51 Assessment & Plan Assessment & Plan (1) PTSD (post-traumatic stress disorder): Status: Acute Code(s): F43.10 - Post-traumatic stress disorder, unspecified (2) Depression: Status: Acute Code(s): F32.A - Depression, unspecified (3) Polysubstance use disorder: Status: Acute Code(s): F19.90 - Other psychoactive substance use, unspecified, uncomplicated (4) Opioid use disorder, severe, on maintenance therapy: Status: Acute Code(s): F11.20 - Opioid dependence, uncomplicated (5) Acute stress reaction: Status: Acute Code(s): F43.0 - Acute stress reaction Plan 32 yo male, history of PTSD, Depression, Anxiety, Opiate Use Disorder, on MAT, Polysubstance Use Disorder with recent sudden of sister on an ATV in [place]. Pt reports this precipiated relapse and SI with plan and intent. Plan: Re-establish regime Medical consult Collateral contacts Scheduled Olanzapine to address paranoia Out patient planning 03/27/23 Continue current regime and plan of care. 03/28/23 patient pushing himself to engage with peers and address his depression and guilty feelings; still with intermittent SI but working on processing his feelings; discussed behavioral activation with which he is engaged Continue current regimen for now 03/29/23 continue current treatment plan Patient educated on: diagnosis and medication risk/benefits Informed Consent: understands Reason for continued inpatient stay Substantial Risk for: rapid decompensation Time Spent With Patient Time: Total time managing care of this patient today ____ minutes.
[2023-03-29] MEDS: clonazePAM 0.5 MG TABLET PO ×2 (11:42→21:29)
[2023-03-29] MEDS: Mirtazapine 30 MG TABLET PO (21:29)
[2023-03-29 22:09] VITALS: BP 134/70; PULSE 75; RESP 16; TEMP 36.6; O2SAT 97
[2023-03-30 08:00] VITALS: BP 126/68; PULSE 60; RESP 18; TEMP 36.4; O2SAT 97
[2023-03-30] MEDS: Nicotine 21 MG PATCH.TD24 TRANSDERMA (08:50)
[2023-03-30] MEDS: cephALEXin 500 MG CAPSULE PO ×4 (08:51→20:26)
[2023-03-30] MEDS: clonazePAM 0.5 MG TABLET PO ×3 (08:52→20:31)
[2023-03-30] MEDS: Gabapentin 400 MG CAPSULE 800 MG PO ×3 (08:52→20:26)
[2023-03-30] MEDS: OLANZapine 5 MG TABLET PO (08:53)
[2023-03-30] MEDS: methADONE HCl 20 MG/2 ML ORAL.CONC 210 MG PO (08:54)
--- NOTE | 2023-03-30 13:46 | P.PNPSI_ITS ---
Subjective Subjective Date of Service: 03/30/23 Reason For Visit: Unspecified trauma and stress disorder Subjective Notes: Conditional Voluntary Healthcare Proxy: No Guardianship: No Medical Problems Affecting Mental Status: No Interim History: Pt with reports of anxiety, depression, grief. Klonopin prn increased to tid, olanzapine increase to 10 mg bid. Will assess efficacy and tentative discharge plan for 03/23/23. Pt is without housing at this time. He is reluctant to take referrals, is considering an IOP program Medication Compliance: Yes Side effects from medications: No Attending Groups: Intermittent Review of Systems Acute medical concerns: No Medical Review of Systems: unchanged Mental Status Exam Mental Status Exam Patient Appearance: Appropriate Patient Orientation: Person, Place, Time and Situation Level of Consciousness: Appropriate and Alert Patient Behavior: Appropriate, Talkative, Cooperative and Good Eye Contact Mood Description: Depressed Affect Description: Flat Ability to Follow Directions: Good Speech Pattern: Spontaneous Speech Memory Description: Episodic Impaired Hallucinations: None Delusions: Paranoid Ideation (mild and intermittent) Perceptual Disturbances: Depersonalization and Derealization Thought Process: Distracted Thought Content: positive for Perseveration Depressive Symptoms: Thoughts of /Suicide (passive) Judgement: Good Diagnostics Vital Signs (24Hr): Vital Signs - 24 hr 03/29/23 22:09 03/30/23 08:00 Temperature 97.9 F 97.6 F Pulse Rate 75 60 Respiratory Rate 16 18 Blood Pressure 134/70 126/68 Pulse Oximetry 97 97 Oxygen Delivery Method Room Air Room Air Medications Medications Current Medications Acetaminophen (Acetaminophen 325 Mg Tablet) 650 mg PO Q6H PRN PRN Reason: Headache/Pain Mild Scale (1-3) Al Hydroxide/Mg Hydroxide (Magnesium Hydrox/Alum Hydrox 30 Ml Oral.Susp) 30 ml PO Q6H PRN PRN Reason: Heartburn/Nausea Betamethasone Dipropion Augmented (Betamethasone Dip Aug 0.05% Cr 15 Gm Tube) 1 appl TOPICAL BID [facility]; Protocol Last Admin: 03/30/23 08:53 Dose: Not Given Cephalexin HCl (Cephalexin 500 Mg Capsule) 500 mg PO QID [facility] Last Admin: 03/30/23 12:33 Dose: 500 mg Clonazepam (Clonazepam 0.5 Mg Tablet) 0.5 mg PO BID@0900,2000 [facility] Last Admin: 03/30/23 08:52 Dose: 0.5 mg Clonidine HCl (Clonidine Hcl 0.1 Mg Tablet) 0.1 mg PO Q4H PRN; Protocol PRN Reason: anxiety Gabapentin (Gabapentin 400 Mg Capsule) 800 mg PO TID [facility] Last Admin: 03/30/23 08:52 Dose: 800 mg Hydroxyzine HCl (Hydroxyzine Hcl 25 Mg Tablet) 25 mg PO Q6H PRN PRN Reason: Anxiety Last Admin: 03/25/23 18:49 Dose: 25 mg Magnesium Hydroxide (Milk Of Magnesia 30 Ml Oral.Susp) 30 ml PO DAILY PRN PRN Reason: Constipation Methadone HCl (Methadone Hcl 20 Mg/2 Ml Oral.Conc) 210 mg PO DAILY [facility] Last Admin: 03/30/23 08:54 Dose: 210 mg Mirtazapine (Mirtazapine 30 Mg Tablet) 30 mg PO BEDTIME [facility] Last Admin: 03/29/23 21:29 Dose: 30 mg Nicotine (Nicotine 21 Mg Patch.Td24) 21 mg TRANSDERMA DAILY [facility] Last Admin: 03/30/23 08:50 Dose: 21 mg Nicotine Polacrilex (Nicotine Polacrilex 2 Mg Gum) 4 mg BUCCAL Q2H PRN PRN Reason: Nicotine Cravings Olanzapine (Olanzapine 5 Mg Tablet) 5 mg PO TID PRN PRN Reason: agitation Olanzapine (Olanzapine 5 Mg Tablet) 5 mg PO BID [facility] Last Admin: 03/30/23 08:53 Dose: 5 mg Trazodone HCl (Trazodone Hcl 50 Mg Tablet) 50 mg PO BEDTIME MRX1 PRN PRN Reason: Insomnia Allergies Allergies Allergy/AdvReac Type Severity Reaction Status Date / Time No Known Allergies Allergy Verified 03/24/23 21:51 Assessment & Plan Assessment & Plan (1) PTSD (post-traumatic stress disorder): Status: Acute Code(s): F43.10 - Post-traumatic stress disorder, unspecified (2) Depression: Status: Acute Code(s): F32.A - Depression, unspecified (3) Polysubstance use disorder: Status: Acute Code(s): F19.90 - Other psychoactive substance use, unspecified, uncomplicated (4) Opioid use disorder, severe, on maintenance therapy: Status: Acute Code(s): F11.20 - Opioid dependence, uncomplicated (5) Acute stress reaction: Status: Acute Code(s): F43.0 - Acute stress reaction Plan 32 yo male, history of PTSD, Depression, Anxiety, Opiate Use Disorder, on MAT, Polysubstance Use Disorder with recent sudden of sister on an ATV in [place]. Pt reports this precipiated relapse and SI with plan and intent. Plan: Re-establish regime Medical consult Collateral contacts Scheduled Olanzapine to address paranoia Out patient planning 03/27/23 Continue current regime and plan of care. 03/28/23 patient pushing himself to engage with peers and address his depression and guilty feelings; still with intermittent SI but working on processing his feelings; discussed behavioral activation with which he is engaged Continue current regimen for now 03/29/23 continue current treatment plan 03/30/23 Increase Olanzapine to 10 mg bid Increase Klonopin prn to tid Patient educated on: medication risk/benefits Informed Consent: understands Reason for continued inpatient stay Substantial Risk for: rapid decompensation Time Spent With Patient Time: Total time managing care of this patient today ____ minutes.
[2023-03-30 16:17] VITALS: BP 122/69; PULSE 80; RESP 16; TEMP 36.3; O2SAT 98
[2023-03-30] MEDS: OLANZapine 10 MG TABLET PO (20:26)
[2023-03-30] MEDS: Mirtazapine 30 MG TABLET PO (20:26)
[2023-03-31 06:00] VITALS: BP 119/59; PULSE 66; RESP 16; TEMP 36.9; O2SAT 95
[2023-03-31] MEDS: Nicotine 21 MG PATCH.TD24 TRANSDERMA (08:26)
[2023-03-31] MEDS: Gabapentin 400 MG CAPSULE 800 MG PO ×3 (08:27→19:57)
[2023-03-31] MEDS: OLANZapine 10 MG TABLET PO ×2 (08:27→19:57)
[2023-03-31] MEDS: cephALEXin 500 MG CAPSULE PO ×4 (08:27→19:57)
[2023-03-31] MEDS: clonazePAM 0.5 MG TABLET PO ×3 (08:29→19:57)
[2023-03-31] MEDS: methADONE HCl 20 MG/2 ML ORAL.CONC 210 MG PO (08:32)
--- NOTE | 2023-03-31 12:26 | HO.PSYCHPN ---
Subjective Subjective Date of Service: 03/31/23 Reason For Visit: Unspecified trauma and stress disorder Subjective Notes: Conditional Voluntary Healthcare Proxy: No Guardianship: No Medical Problems Affecting Mental Status: No Interim History: Tolerating medication changes. Reluctant to accept out pt treatment, considering IOP Discharge planning for 04/03 if regime is well tolerated. Medication Compliance: Yes Side effects from medications: No Attending Groups: No Review of Systems Medical Review of Systems: unchanged Mental Status Exam Mental Status Exam Patient Appearance: Appropriate Patient Orientation: Person, Place, Time and Situation Level of Consciousness: Alert Patient Behavior: Talkative and Good Eye Contact Mood Description: Depressed Affect Description: Flat Patient Cognition Impaired: No Ability to Follow Directions: Good Speech Pattern: Spontaneous Speech Memory Description: Intact Hallucinations: None Delusions: Not Present Thought Process: Intact Thought Content: positive for Intact Depressive Symptoms: Increased Anxiety and Thoughts of /Suicide (denies) Judgement: Fair Diagnostics Vital Signs (24Hr): Vital Signs - 24 hr 03/30/23 16:17 03/31/23 06:00 Temperature 97.3 F 98.4 F Pulse Rate 80 66 Respiratory Rate 16 16 Blood Pressure 122/69 119/59 L Pulse Oximetry 98 95 Oxygen Delivery Method Room Air Room Air Medications Medications Current Medications Acetaminophen (Acetaminophen 325 Mg Tablet) 650 mg PO Q6H PRN PRN Reason: Headache/Pain Mild Scale (1-3) Al Hydroxide/Mg Hydroxide (Magnesium Hydrox/Alum Hydrox 30 Ml Oral.Susp) 30 ml PO Q6H PRN PRN Reason: Heartburn/Nausea Betamethasone Dipropion Augmented (Betamethasone Dip Aug 0.05% Cr 15 Gm Tube) 1 appl TOPICAL BID [facility]; Protocol Last Admin: 03/31/23 08:27 Dose: Not Given Cephalexin HCl (Cephalexin 500 Mg Capsule) 500 mg PO QID [facility] Last Admin: 03/31/23 12:11 Dose: 500 mg Clonazepam (Clonazepam 0.5 Mg Tablet) 0.5 mg PO 0900,1500,2000 [facility] Last Admin: 03/31/23 08:29 Dose: 0.5 mg Clonidine HCl (Clonidine Hcl 0.1 Mg Tablet) 0.1 mg PO Q4H PRN; Protocol PRN Reason: anxiety Gabapentin (Gabapentin 400 Mg Capsule) 800 mg PO TID [facility] Last Admin: 03/31/23 08:27 Dose: 800 mg Hydroxyzine HCl (Hydroxyzine Hcl 25 Mg Tablet) 25 mg PO Q6H PRN PRN Reason: Anxiety Last Admin: 03/25/23 18:49 Dose: 25 mg Magnesium Hydroxide (Milk Of Magnesia 30 Ml Oral.Susp) 30 ml PO DAILY PRN PRN Reason: Constipation Methadone HCl (Methadone Hcl 20 Mg/2 Ml Oral.Conc) 210 mg PO DAILY [facility] Last Admin: 03/31/23 08:32 Dose: 210 mg Mirtazapine (Mirtazapine 30 Mg Tablet) 30 mg PO BEDTIME [facility] Last Admin: 03/30/23 20:26 Dose: 30 mg Nicotine (Nicotine 21 Mg Patch.Td24) 21 mg TRANSDERMA DAILY [facility] Last Admin: 03/31/23 08:26 Dose: 21 mg Nicotine Polacrilex (Nicotine Polacrilex 2 Mg Gum) 4 mg BUCCAL Q2H PRN PRN Reason: Nicotine Cravings Olanzapine (Olanzapine 5 Mg Tablet) 5 mg PO TID PRN PRN Reason: agitation Olanzapine (Olanzapine 10 Mg Tablet) 10 mg PO BID [facility] Last Admin: 03/31/23 08:27 Dose: 10 mg Trazodone HCl (Trazodone Hcl 50 Mg Tablet) 50 mg PO BEDTIME MRX1 PRN PRN Reason: Insomnia Allergies Allergies Allergy/AdvReac Type Severity Reaction Status Date / Time No Known Allergies Allergy Verified 03/24/23 21:51 Assessment & Plan Assessment & Plan (1) PTSD (post-traumatic stress disorder): Status: Acute Code(s): F43.10 - Post-traumatic stress disorder, unspecified (2) Depression: Status: Acute Code(s): F32.A - Depression, unspecified (3) Polysubstance use disorder: Status: Acute Code(s): F19.90 - Other psychoactive substance use, unspecified, uncomplicated (4) Opioid use disorder, severe, on maintenance therapy: Status: Acute Code(s): F11.20 - Opioid dependence, uncomplicated (5) Acute stress reaction: Status: Acute Code(s): F43.0 - Acute stress reaction Plan 32 yo male, history of PTSD, Depression, Anxiety, Opiate Use Disorder, on MAT, Polysubstance Use Disorder with recent sudden of sister on an ATV in [place]. Pt reports this precipiated relapse and SI with plan and intent. Plan: Re-establish regime Medical consult Collateral contacts Scheduled Olanzapine to address paranoia Out patient planning 03/27/23 Continue current regime and plan of care. 03/28/23 patient pushing himself to engage with peers and address his depression and guilty feelings; still with intermittent SI but working on processing his feelings; discussed behavioral activation with which he is engaged Continue current regimen for now 03/29/23 continue current treatment plan 03/31/23 Continue current regime and plan of care Informed Consent: understands Reason for continued inpatient stay Substantial Risk for: rapid decompensation Time Spent With Patient Time: Total time managing care of this patient today ____ minutes.
[2023-03-31 17:03] VITALS: BP 126/72; PULSE 82; RESP 18; TEMP 36.4; O2SAT 94
[2023-03-31] MEDS: Mirtazapine 30 MG TABLET PO (20:19)
[2023-04-01 06:00] VITALS: BP 126/80; PULSE 90; RESP 16; TEMP 36.4; O2SAT 95
[2023-04-01] MEDS: cephALEXin 500 MG CAPSULE PO ×4 (09:15→20:31)
[2023-04-01] MEDS: OLANZapine 10 MG TABLET PO ×2 (09:15→20:31)
[2023-04-01] MEDS: Gabapentin 400 MG CAPSULE 800 MG PO ×3 (09:15→20:31)
[2023-04-01] MEDS: Nicotine 21 MG PATCH.TD24 TRANSDERMA (09:15)
[2023-04-01] MEDS: methADONE HCl 20 MG/2 ML ORAL.CONC 210 MG PO (09:18)
[2023-04-01] MEDS: clonazePAM 0.5 MG TABLET PO ×3 (09:29→20:32)
--- NOTE | 2023-04-01 17:29 | HO.PSYCHPN ---
Subjective Subjective Date of Service: 04/01/23 Reason For Visit: Unspecified trauma and stress disorder Subjective Notes: Conditional Voluntary Healthcare Proxy: No Guardianship: No Medical Problems Affecting Mental Status: No Interim History: Review of medications with Ty. Discussed discharge for 04/03. [facility] He is accepting of referral to [facility] He is considering out patient treatment as well. He discussed the loss of his sister and his last interaction with her. She was always supportive of his recovery and he wants to try to honor that in working in his recovery. Medication Compliance: Yes Side effects from medications: No Attending Groups: Intermittent Review of Systems Acute medical concerns: No Medical Review of Systems: unchanged Mental Status Exam Mental Status Exam Patient Appearance: Appropriate Patient Orientation: Person, Place, Time and Situation Level of Consciousness: Alert Patient Behavior: Talkative and Good Eye Contact Mood Description: Depressed Affect Description: Flat Patient Cognition Impaired: No Ability to Follow Directions: Good Speech Pattern: Spontaneous Speech Memory Description: Intact Hallucinations: None Delusions: Not Present Thought Process: Intact Thought Content: positive for Intact Depressive Symptoms: Increased Anxiety and Thoughts of /Suicide (denies) Judgement: Fair Diagnostics Vital Signs (24Hr): Vital Signs - 24 hr 04/01/23 06:00 Temperature 97.6 F Pulse Rate 90 Respiratory Rate 16 Blood Pressure 126/80 Pulse Oximetry 95 Oxygen Delivery Method Room Air Medications Medications Current Medications Acetaminophen (Acetaminophen 325 Mg Tablet) 650 mg PO Q6H PRN PRN Reason: Headache/Pain Mild Scale (1-3) Al Hydroxide/Mg Hydroxide (Magnesium Hydrox/Alum Hydrox 30 Ml Oral.Susp) 30 ml PO Q6H PRN PRN Reason: Heartburn/Nausea Betamethasone Dipropion Augmented (Betamethasone Dip Aug 0.05% Cr 15 Gm Tube) 1 appl TOPICAL BID [facility]; Protocol Last Admin: 04/01/23 11:25 Dose: Not Given Cephalexin HCl (Cephalexin 500 Mg Capsule) 500 mg PO QID [facility] Stop: 04/02/23 21:00 Last Admin: 04/01/23 16:14 Dose: 500 mg Clonazepam (Clonazepam 0.5 Mg Tablet) 0.5 mg PO 0900,1500,2000 [facility] Last Admin: 04/01/23 14:42 Dose: 0.5 mg Clonidine HCl (Clonidine Hcl 0.1 Mg Tablet) 0.1 mg PO Q4H PRN; Protocol PRN Reason: anxiety Gabapentin (Gabapentin 400 Mg Capsule) 800 mg PO TID [facility] Last Admin: 04/01/23 14:39 Dose: 800 mg Hydroxyzine HCl (Hydroxyzine Hcl 25 Mg Tablet) 25 mg PO Q6H PRN PRN Reason: Anxiety Last Admin: 03/25/23 18:49 Dose: 25 mg Magnesium Hydroxide (Milk Of Magnesia 30 Ml Oral.Susp) 30 ml PO DAILY PRN PRN Reason: Constipation Methadone HCl (Methadone Hcl 20 Mg/2 Ml Oral.Conc) 210 mg PO DAILY [facility] Last Admin: 04/01/23 09:18 Dose: 210 mg Mirtazapine (Mirtazapine 30 Mg Tablet) 30 mg PO BEDTIME [facility] Last Admin: 03/31/23 20:19 Dose: 30 mg Nicotine (Nicotine 21 Mg Patch.Td24) 21 mg TRANSDERMA DAILY [facility] Last Admin: 04/01/23 09:15 Dose: 21 mg Nicotine Polacrilex (Nicotine Polacrilex 2 Mg Gum) 4 mg BUCCAL Q2H PRN PRN Reason: Nicotine Cravings Olanzapine (Olanzapine 5 Mg Tablet) 5 mg PO TID PRN PRN Reason: agitation Olanzapine (Olanzapine 10 Mg Tablet) 10 mg PO BID [facility] Last Admin: 04/01/23 09:15 Dose: 10 mg Trazodone HCl (Trazodone Hcl 50 Mg Tablet) 50 mg PO BEDTIME MRX1 PRN PRN Reason: Insomnia Allergies Allergies Allergy/AdvReac Type Severity Reaction Status Date / Time No Known Allergies Allergy Verified 03/24/23 21:51 Assessment & Plan Assessment & Plan (1) PTSD (post-traumatic stress disorder): Status: Acute Code(s): F43.10 - Post-traumatic stress disorder, unspecified (2) Depression: Status: Acute Code(s): F32.A - Depression, unspecified (3) Polysubstance use disorder: Status: Acute Code(s): F19.90 - Other psychoactive substance use, unspecified, uncomplicated (4) Opioid use disorder, severe, on maintenance therapy: Status: Acute Code(s): F11.20 - Opioid dependence, uncomplicated (5) Acute stress reaction: Status: Acute Code(s): F43.0 - Acute stress reaction Plan 32 yo male, history of PTSD, Depression, Anxiety, Opiate Use Disorder, on MAT, Polysubstance Use Disorder with recent sudden of sister on an ATV in [place]. Pt reports this precipiated relapse and SI with plan and intent. Plan: Re-establish regime Medical consult Collateral contacts Scheduled Olanzapine to address paranoia Out patient planning 03/27/23 Continue current regime and plan of care. 03/28/23 patient pushing himself to engage with peers and address his depression and guilty feelings; still with intermittent SI but working on processing his feelings; discussed behavioral activation with which he is engaged Continue current regimen for now 03/29/23 continue current treatment plan 04/01/23 Discharge 04/03 with referrals. Patient educated on: medication risk/benefits and therapeutic strategies Informed Consent: understands Reason for continued inpatient stay Substantial Risk for: rapid decompensation Time Spent With Patient Time: Total time managing care of this patient today ____ minutes.
[2023-04-01 19:14] VITALS: BP 125/80; PULSE 86; TEMP 36.4
[2023-04-01] MEDS: Mirtazapine 30 MG TABLET PO (20:31)
[2023-04-02 08:41] VITALS: BP 119/71; PULSE 89; RESP 18; TEMP 36.6; O2SAT 94
[2023-04-02] MEDS: cephALEXin 500 MG CAPSULE PO ×4 (08:45→20:19)
[2023-04-02] MEDS: OLANZapine 10 MG TABLET PO ×2 (08:45→20:19)
[2023-04-02] MEDS: Nicotine 21 MG PATCH.TD24 TRANSDERMA (08:46)
[2023-04-02] MEDS: Gabapentin 400 MG CAPSULE 800 MG PO ×3 (08:46→20:18)
[2023-04-02] MEDS: clonazePAM 0.5 MG TABLET PO ×3 (08:51→20:20)
[2023-04-02] MEDS: methADONE HCl 20 MG/2 ML ORAL.CONC 210 MG PO (08:53)
[2023-04-02] MEDS: Betamethasone Dip Aug 0.05% Cr 15 GM TUBE 1 APPL TOPICAL (10:16)
--- NOTE | 2023-04-02 14:44 | HO.PSYCHPN ---
Subjective Subjective Date of Service: 04/02/23 Reason For Visit: Unspecified trauma and stress disorder Subjective Notes: Conditional Voluntary Healthcare Proxy: No Guardianship: No Medical Problems Affecting Mental Status: No Interim History: Reviewed aftercare planning and responded to questions from pt He had expressed concern about being on too many medications. With review today, he reports he is in agreement with this plan. He will self present to [facility], has an appt on 04/20 with IOP at [facility] and verbalized understanding of meds, refill process and out pt care moving forward. Medication Compliance: Yes Side effects from medications: No Attending Groups: Intermittent Review of Systems Acute medical concerns: No Medical Review of Systems: unchanged Mental Status Exam Mental Status Exam Patient Appearance: Appropriate Patient Orientation: Person, Place, Time and Situation Level of Consciousness: Alert Patient Behavior: Talkative and Good Eye Contact Mood Description: Appropriate Affect Description: Flat Patient Cognition Impaired: No Ability to Follow Directions: Good Speech Pattern: Spontaneous Speech Memory Description: Intact Hallucinations: None Delusions: Not Present Thought Process: Intact Thought Content: positive for Intact Depressive Symptoms: Increased Anxiety Judgement: Fair Diagnostics Vital Signs (24Hr): Vital Signs - 24 hr 04/01/23 19:14 04/02/23 08:41 Temperature 97.6 F 97.9 F Pulse Rate 86 89 Respiratory Rate 18 Blood Pressure 125/80 119/71 Pulse Oximetry 94 Oxygen Delivery Method Room Air Medications Medications Current Medications Acetaminophen (Acetaminophen 325 Mg Tablet) 650 mg PO Q6H PRN PRN Reason: Headache/Pain Mild Scale (1-3) Al Hydroxide/Mg Hydroxide (Magnesium Hydrox/Alum Hydrox 30 Ml Oral.Susp) 30 ml PO Q6H PRN PRN Reason: Heartburn/Nausea Betamethasone Dipropion Augmented (Betamethasone Dip Aug 0.05% Cr 15 Gm Tube) 1 appl TOPICAL BID [facility]; Protocol Last Admin: 04/02/23 10:16 Dose: 1 appl Cephalexin HCl (Cephalexin 500 Mg Capsule) 500 mg PO QID [facility] Stop: 04/02/23 21:00 Last Admin: 04/02/23 13:50 Dose: 500 mg Clonazepam (Clonazepam 0.5 Mg Tablet) 0.5 mg PO 0900,1500,2000 [facility] Last Admin: 04/02/23 14:21 Dose: 0.5 mg Clonidine HCl (Clonidine Hcl 0.1 Mg Tablet) 0.1 mg PO Q4H PRN; Protocol PRN Reason: anxiety Gabapentin (Gabapentin 400 Mg Capsule) 800 mg PO TID [facility] Last Admin: 04/02/23 13:50 Dose: 800 mg Hydroxyzine HCl (Hydroxyzine Hcl 25 Mg Tablet) 25 mg PO Q6H PRN PRN Reason: Anxiety Last Admin: 03/25/23 18:49 Dose: 25 mg Magnesium Hydroxide (Milk Of Magnesia 30 Ml Oral.Susp) 30 ml PO DAILY PRN PRN Reason: Constipation Methadone HCl (Methadone Hcl 20 Mg/2 Ml Oral.Conc) 210 mg PO DAILY [facility] Last Admin: 04/02/23 08:53 Dose: 210 mg Mirtazapine (Mirtazapine 30 Mg Tablet) 30 mg PO BEDTIME [facility] Last Admin: 04/01/23 20:31 Dose: 30 mg Nicotine (Nicotine 21 Mg Patch.Td24) 21 mg TRANSDERMA DAILY [facility] Last Admin: 04/02/23 08:46 Dose: 21 mg Nicotine Polacrilex (Nicotine Polacrilex 2 Mg Gum) 4 mg BUCCAL Q2H PRN PRN Reason: Nicotine Cravings Olanzapine (Olanzapine 5 Mg Tablet) 5 mg PO TID PRN PRN Reason: agitation Olanzapine (Olanzapine 10 Mg Tablet) 10 mg PO BID [facility] Last Admin: 04/02/23 08:45 Dose: 10 mg Trazodone HCl (Trazodone Hcl 50 Mg Tablet) 50 mg PO BEDTIME MRX1 PRN PRN Reason: Insomnia Allergies Allergies Allergy/AdvReac Type Severity Reaction Status Date / Time No Known Allergies Allergy Verified 03/24/23 21:51 Assessment & Plan Assessment & Plan (1) PTSD (post-traumatic stress disorder): Status: Acute Code(s): F43.10 - Post-traumatic stress disorder, unspecified (2) Depression: Status: Acute Code(s): F32.A - Depression, unspecified (3) Polysubstance use disorder: Status: Acute Code(s): F19.90 - Other psychoactive substance use, unspecified, uncomplicated (4) Opioid use disorder, severe, on maintenance therapy: Status: Acute Code(s): F11.20 - Opioid dependence, uncomplicated (5) Acute stress reaction: Status: Acute Code(s): F43.0 - Acute stress reaction Plan 32 yo male, history of PTSD, Depression, Anxiety, Opiate Use Disorder, on MAT, Polysubstance Use Disorder with recent sudden of sister on an ATV in [place]. Pt reports this precipiated relapse and SI with plan and intent. Plan: Re-establish regime Medical consult Collateral contacts Scheduled Olanzapine to address paranoia Out patient planning 03/27/23 Continue current regime and plan of care. 03/28/23 patient pushing himself to engage with peers and address his depression and guilty feelings; still with intermittent SI but working on processing his feelings; discussed behavioral activation with which he is engaged Continue current regimen for now 03/29/23 continue current treatment plan 03/31/23 Continue current regime and plan of care 04/02/23 Discharge 04/03/23 Patient educated on: medication risk/benefits and therapeutic strategies Informed Consent: understands Reason for continued inpatient stay Substantial Risk for: stable for discharge Time Spent With Patient Time: Total time managing care of this patient today ____ minutes.
[2023-04-02 18:00] VITALS: BP 135/79; PULSE 88; TEMP 36.2; O2SAT 98
[2023-04-02] MEDS: Mirtazapine 30 MG TABLET PO (20:19)
[2023-04-03 08:20] VITALS: BP 150/82; PULSE 65; RESP 16; TEMP 36.1; O2SAT 96
[2023-04-03] MEDS: Nicotine 21 MG PATCH.TD24 TRANSDERMA (08:41)
[2023-04-03] MEDS: Gabapentin 400 MG CAPSULE 800 MG PO (08:41)
[2023-04-03] MEDS: methADONE HCl 20 MG/2 ML ORAL.CONC 210 MG PO (08:41)
[2023-04-03] MEDS: OLANZapine 10 MG TABLET PO (08:41)
[2023-04-03] MEDS: clonazePAM 0.5 MG TABLET PO (08:56)
--- NOTE | 2023-04-03 15:58 | PM.PSYDC ---
DS: Providers Provider Date of Service: 04/03/23 Date of admission: 03/24/23 20:44 Date of discharge: 04/03/23 Primary care physician: Unknown Physician Admitting clinician: Siobhan Rooney Attending physician on admission: Triston Rudolph Consults: 03/24/23 22:06 Consult to Hospitalist Routine Comment: Consulting Provider: Hospitalist Reason For Exam: admission physical Attending physician on discharge: Triston Rudolph Discharging clinician: Siobhan Rooney DS: Diagnosis Discharge Diagnosis (1) PTSD (post-traumatic stress disorder): Status: Acute (2) Depression: Status: Deleted (3) Polysubstance use disorder: Status: Acute (4) Opioid use disorder, severe, on maintenance therapy: Status: Acute (5) Acute stress reaction: Status: Acute DS: Medications Discharge Medications Home Medications: Home Medications Medication Instructions Recorded Confirmed methadone 10 mg/mL oral syringe 210 mg PO DAILY 03/24/23 03/25/23 (FOR ORAL USE ONLY) Previous Rx's Medication Instructions Recorded clonazepam 0.5 mg tablet 0.5 mg PO 0900,1500,2000 #42 tabs 04/02/23 gabapentin 800 mg tablet 800 mg PO TID #45 tabs 04/02/23 mirtazapine 30 mg tablet 30 mg PO BEDTIME #14 tabs 04/02/23 olanzapine 10 mg tablet 10 mg PO BID #28 tabs 04/02/23 Mental Status Exam Mental Status Exam Patient Appearance: Appropriate Patient Orientation: Person, Place, Time and Situation Level of Consciousness: Alert Patient Behavior: Talkative and Good Eye Contact Mood Description: Appropriate Affect Description: Flat Patient Cognition Impaired: No Ability to Follow Directions: Good Speech Pattern: Spontaneous Speech Memory Description: Intact Hallucinations: None Delusions: Not Present Thought Process: Intact Thought Content: positive for Intact Depressive Symptoms: Increased Anxiety Judgement: Fair DS: Summary Hospital Course Hospital Course: Admission to adult psychiatry for an acute stress response, PTSD and polysubstance exacerbation in the context of sister dying recently in an ATV accident, homelessness and relapse. Medications were reviewed and adjusted. Milieu support was offered to Ty and aftercare planning was arranged with ongoing support and structure with the [facility]. Time spent discussing smoking cessation with patient: 3 to 10 minutes Status at Discharge Functional status at discharge: independent ambulation Overall status at discharge: patient is progressing back to baseline Time Spent with Patient Time attestation: Total time managing care of this patient today ____ minutes. Time spent: Greater than 30 minutes Discharge Plan Discharge Anticipated Discharge Date/Time: 04/03/23 12:04 Patient Disposition: Long-Term Discharge Diagnosis: Acute Stress Reaction Post Traumatic Stress Disorder Opiate Use Disorder-Methadone Maintenance Polysubstance Use Disorder [facility] pm ([facility] referral for substance use treatment Appointment in person at [facility]. Go into main entrance and inform them you are scheduled for intake.) [facility] [Other] - 04/03/23 (Patient must walk into [facility] to be evaluated for therapy and psychiatry services. Patient may walk in Thursday Through Thursday from 8 am- 8 pm. Patient may also request community support program (CSP) or Recovery Support Navigator (RSN).) [facility] [Other] - 1 Week (Homeless Long-Term information Patient may self present for skilled nursing placement) [facility] [Other] - 1 Week (Long-Term information Patient may self present to be evaluated fro skilled nursing placement.) [facility] [Other] - 1 Week (Community resource ) González Vargas DO [Physician] - (Pt refused to have PCP to be notified of admission. He will follow up with making his own appointment.) Discharge Medications: New clonazepam 0.5 mg Tablet 0.5 mg PO 0900,1500,2000 Qty: 42 1RF olanzapine 10 mg Tablet 10 mg PO BID Qty: 28 1RF gabapentin 800 mg tablet 800 mg PO TID Qty: 45 1RF Continued methadone 10 mg/mL Syringe 210 mg PO DAILY mirtazapine 30 mg Tablet 30 mg PO BEDTIME Qty: 14 1RF Discontinued gabapentin 600 mg Tablet 600 mg PO TID clonazepam [Klonopin] 0.5 mg Tablet 0.5 mg PO DAILY PRN (Reason: Anxiety) cephalexin [Keflex] 500 mg Capsule 500 mg PO Q8H Discharge Orders: Discharge Order (Routine); Ordered 04/02/23 Ordered By: Siobhan Rooney Diet: Advance to usual diet Activity on Discharge: As tolerated Stand Alone Forms: Patient Portal Discharge page, Community Support Care Plan Goals: Mood and Behavioral Stabilization Sobriety Health Concerns: Mood and Behavioral Stabilization Sobriety Plan of Treatment: Attend scheduled appointments Take medications as directed Assessment: Pt interviewed prior to discharge and found to be fully oriented and without SI/HI. Pt has insight and demonstrates good judgment in terms of wanting to pursue treatment. Pt is not in imminent risk of harm to self or others and has a safety plan that includes presenting to the closest ER or calling 911 if feeling unsafe. Pt has been observed closely by nursing and unit staff throughout admission. Pt has not engaged in any behaviors that suggest dangerousness to self or others and has demonstrated appropriate behaviors and impulse control. Discharge Date/Time: 04/03/23 11:08
== END 2023-04-03 11:08 | disposition home or self-care (01) | DRG 880 ==
PROVIDERS: Admitting Provider Psychiatry & Neurology Psychiatry; Visit Provider Clinical Nurse Specialist Psychiatric/Mental Health, Adult
DX: F43.0 Acute stress reaction (principal); R45.851 Suicidal ideations; F11.20 Opioid dependence, uncomplicated; L03.311 Cellulitis of abdominal wall; F19.10 Other psychoactive substance abuse, uncomplicated; F43.10 Post-traumatic stress disorder, unspecified; F32.A Depression, unspecified; K59.09 Other constipation; Z79.899 Other long term (current) drug therapy
CPT/HCPCS: 36415; 80061; 83036; 86704; 86706; 86709; 86803; 87340; 87389

== ENCOUNTER → 2023-03-24 20:44 | Outpatient (BNV) | payer OTHER, SELFPAY | PROVIDERS: Admitting Provider Psychiatry & Neurology Psychiatry; Visit Provider Clinical Nurse Specialist Psychiatric/Mental Health, Adult | DX: F43.11 Post-traumatic stress disorder, acute (principal); F32.1 Major depressive disorder, single episode, moderate; F19.90 Other psychoactive substance use, unspecified, uncomplicated; F11.20 Opioid dependence, uncomplicated; F43.0 Acute stress reaction | CPT/HCPCS: 90792; 99232; 99239 ==

== ENCOUNTER → 2023-03-24 20:44 | Outpatient (BNV) | payer OTHER, SELFPAY | PROVIDERS: Admitting Provider Psychiatry & Neurology Psychiatry; Visit Provider Student in an Organized Health Care Education/Training Program | DX: L03.311 Cellulitis of abdominal wall (principal) | CPT/HCPCS: 99222 ==